=== PATIENT | female | born 1955 | race Caucasian/White ===

== ENCOUNTER 2016-12-24 14:54 | Inpatient (IN) ==
[2016-12-24] MEDS ORDERED: ALBUTEROL/IPRATROPIUM 3 ML NEB RESP TX PRN (18:21)
[2016-12-24] MEDS ORDERED: MORPHINE 2 MG/1 ML SYRINGE IV PRN (18:33)
[2016-12-24] MEDS ORDERED: CITALOPRAM 40 MG TABLET PO SCH (21:00)
--- NOTE | 2016-12-24 21:13 | Internal Med History&Physical ---
Assessment and Plan (1) Comminuted left humeral fracture Status: Acute Current Visit: Yes (2) Hypertension Status: Chronic Current Visit: Yes Qualifiers: Hypertension type: essential hypertension Qualified Code(s): I10 - Essential (primary) hypertension (3) Diabetes Status: Chronic Current Visit: Yes Qualifiers: Diabetes mellitus type: type 2 Diabetes mellitus complication status: with hyperglycemia Diabetes mellitus nursing home insulin use: without nursing home use Qualified Code(s): E11.65 - Type 2 diabetes mellitus with hyperglycemia (4) JESSICA (obstructive sleep apnea) Status: Chronic Current Visit: Yes (5) Anemia Status: Chronic Current Visit: Yes Qualifiers: Other causes of anemia: chronic disease, other History of Present Illness Chief complaint: arm pain from acute fracture History of present illness: Ms. 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 She is scheduled for a surgical repair in the morning per Dr. Chavez. She is uncertain how she fell and denies loss of consciousness. Allergies Allergy/AdvReac Type Severity Reaction Status Date / Time Hydralazine Allergy Verified 12/24/16 16:44 lisinopril Allergy Verified 12/24/16 16:44 metformin Allergy Verified 12/24/16 16:44 Medical,Surgical,& Family Hx - Medical History Cardio: History of: Hypertension Endocrine: History of: Diabetes Mellitus (IDDM) Respiratory: History of: COPD, Obstructive Sleep Apnea (CPAP) Gastrointestinal: History of: Gastrointestinal Cancer (colon) Musculoskeletal: History of: Musculoskeletal Problems (osteoarthritis) Hematology: History of: Anemia - Surgical History Cardiac Surgeries: Sugical HX of: Vascular Access Devices (mediport placement) HEENT Surgeries: Surgical HX of: Tonsilectomy & Adenoidectomy Abdominal Surgeries: Surgical HX of: Abdominal Surgery, Colonoscopy Reproductive Surgeries: Surgical HX of;: Section, Gynecologic Surgery ( atopic ) - Family History Family History: Reports;: Family Cancer, Family Heart Disease, Family Hypertension, Family Stroke - Social History Smoking Status: Former smoker (quit smoking over 15 years ago) Frequency of Alcohol Use: None Type of Drug Use: None Functional capacity: wheelchair bound - Constitutional Constitutional: Present: fatigue - Musculoskeletal Musculoskeletal: Present: arthralgias, limited range of motion, muscle weakness (left arm), myalgias Exam - Constitutional Vitals: Period Temp Pulse Resp BP Sys/East Pulse Ox Last 24 Hr 97.4 F 83 22-22 168/96 General appearance: no acute distress - Head Head exam: Present: normocephalic - Eye Eye exam: Present: EOMI - Respiratory Respiratory exam: Present: clear to auscultation bilaterally. Absent: rales, rhonchi, wheezes - Cardiovascular Cardiovascular exam: Present: regular rate and rhythm - GI/Abdominal GI/Abdominal exam: Present: soft. Absent: tenderness - Extremities Exam Extremities exam: Absent: edema - Neurological Exam Neurological exam: Present: alert, oriented X3, CN II-XII intact - Psychiatric Psychiatric exam: Present: normal mood - Skin Skin exam: Present: warm, diaphoretic (severe arm pain) Results - EKG EKG shows: sinus rhythm - Diagnostic Findings Procedure: X-ray: report reviewed by me (left humeral comminuted fracture)
--- NOTE | 2016-12-24 21:36 | XRay Report ---
Exam: XR chest 1V portable Date: 12/24/2016 9:13 PM Indication: Respiratory preop evaluation of the chest Comparison: CT 06/14/2015, history of prior colorectal carcinoma Technical:AP portable Findings: A left-sided subclavian port catheter is present distance. Vena cava. Cardiomegaly is present. Mild interstitial thickening present and shunt vascularity. Tiny low-volume left effusion present. Left humeral head neck fracture is suspected with butterfly fragment Impression: 1. Cardiomegaly with mild interstitial edema questioned. 2. Left-sided port 3. Left humeral head neck fracture PROCEDURE INTERPRETED AT [facility] DEPARTMENT OF RADIOLOGY Final Report Signed by: Dr. Kristopher Webster
[2016-12-24] MEDS: CARBIDOPA/LEVODOPA 25-100 MG TABLET PO SCH (22:03)
[2016-12-24] MEDS: CITALOPRAM 40 MG TABLET PO SCH (22:03)
[2016-12-24] MEDS: traZODone 50 MG TABLET PO SCH (22:04)
[2016-12-24] MEDS: cloNIDine 0.1 MG TABLET PO SCH (22:04)
[2016-12-24] MEDS: CETIRIZINE 10 MG TABLET PO SCH (22:04)
[2016-12-24] MEDS: sitaGLIPtin 25 MG TABLET PO SCH (22:04)
[2016-12-24] MEDS: INSULIN REGULAR 100 UNIT/ML SUBCUT SCH (22:05)
[2016-12-24] MEDS: KETOROLAC 15 MG/1 ML VIAL IV SCH (22:21)
[2016-12-25] MEDS ORDERED: FUROSEMIDE 20 MG/2 ML VIAL IV ONE (00:50)
[2016-12-25] MEDS ORDERED: POTASSIUM CHLORIDE 20 MEQ TABLET PO ONE (00:51)
[2016-12-25] MEDS: KETOROLAC 15 MG/1 ML VIAL IV SCH ×4 (05:32→23:20)
[2016-12-25 06:10] LABS: Basophils % 0.4 % (0.0-0.8); Eosinophils # 0.1 10*3/uL (0.0-0.87); Eosinophils % 1.7 % (0.00-10.9); Hematocrit 40.1 VOL% (35.7-47.0); Hemoglobin 13.3 GM/DL (12.0-16.0); Immature Granulocytes % 0.6 %; Immature Granulocytes Absolute 0.03 #; Lymphocytes # 1.4 10*3/uL (1.4-4.0); Lymphocytes % 27.2 % (21.3-54.2); Mean Corpuscular HGB Conc 33.2 GM/DL (32-36); Mean Corpuscular Hemoglobin 29 PG (27-34); Mean Corpuscular Volume 88.1 FL (87-102); Mean Platelet Volume 11.8 FL (9.6-12.0); Monocytes # 0.4 10*3/uL (0.11-0.8); Monocytes % 7.7 % (1.7-12.7); Neutrophils # 3.2 10*3/uL (1.4-7.4); Neutrophils % 62.4 % (38.7-73.9); Platelet Count 105 10*3/uL (130-400); Red Blood Count 4.55 10*6/uL (3.8-5.5); Red Cell Distribution Width 13.2 % (9.3-17.3); White Blood Count 5.2 10*3/uL (4.5-13.71)
[2016-12-25 07:01] LABS: Albumin 3.3 G/DL (3.4-5.0); Calcium 8.7 MG/DL (8.5-10.1); Osmolality,Calculated 295.3 MOS/KG (273-304); Potassium 4.5 MMOL/L (3.5-5.1); Total Protein 6.2 G/DL (6.4-8.3)
[2016-12-25] MEDS ORDERED: FAMOTIDINE 20 MG TABLET PO ONE (07:33)
--- NOTE | 2016-12-25 08:01 | Orthopedic Consult Note ---
History of Present Illness History of present illness: Ms. Chery is a 61 year old female See attached reports H&P Home Medications Medication Instructions Recorded Confirmed Type Aspirin [Ecotrin] 81 mg PO DAILY 12/25/16 12/25/16 History Carbidopa/Levodopa 25-100 [Sinemet 1 tablet PO TID 12/25/16 12/25/16 History 25-100] Cetirizine Tab [ZyrTEC Tab] 10 mg PO DAILY 12/25/16 12/25/16 History Citalopram [CeleXA] 40 mg PO DAILY 12/25/16 12/25/16 History Ergocalciferol (Vitamin D2) 2,000 unit PO DAILY 12/25/16 12/25/16 History [Vitamin D2] Famotidine Tab [Pepcid Tab] 20 mg PO BID 12/25/16 12/25/16 History Glimepiride [Amaryl] 2 mg PO DAILY W/BREAKFAST 12/25/16 12/25/16 History Levothyroxine Tab [Synthroid Tab] 50 mcg PO DAILY@0700 12/25/16 12/25/16 History Oxybutynin [Ditropan] 5 mg PO BID 12/25/16 12/25/16 History Sitagliptin Phosphate [Januvia] 50 mg PO BID 12/25/16 12/25/16 History Valsartan [Diovan] 80 mg PO DAILY 12/25/16 12/25/16 History traZODone [Desyrel] 200 mg PO DAILY 12/25/16 12/25/16 History Allergies Allergy/AdvReac Type Severity Reaction Status Date / Time Hydralazine Allergy Verified 12/24/16 16:44 lisinopril Allergy Verified 12/24/16 16:44 metformin Allergy Verified 12/24/16 16:44 Medical,Surgical,& Family Hx - Medical History Cardio: History of: Hypertension Endocrine: History of: Diabetes Mellitus (IDDM) Respiratory: History of: COPD, Obstructive Sleep Apnea (CPAP) Gastrointestinal: History of: Gastrointestinal Cancer (colon) Musculoskeletal: History of: Musculoskeletal Problems (osteoarthritis) Hematology: History of: Anemia - Surgical History Cardiac Surgeries: Sugical HX of: Vascular Access Devices (mediport placement) HEENT Surgeries: Surgical HX of: Tonsilectomy & Adenoidectomy Abdominal Surgeries: Surgical HX of: Abdominal Surgery, Colonoscopy Reproductive Surgeries: Surgical HX of;: Section, Gynecologic Surgery ( atopic ) - Family History Family History: Reports;: Family Cancer, Family Heart Disease, Family Hypertension, Family Stroke - Social History Smoking Status: Former smoker (quit smoking over 15 years ago) Frequency of Alcohol Use: None Type of Drug Use: None Exam - Constitutional Vitals: Period Temp Pulse Resp BP Sys/East Pulse Ox Last 24 Hr 97.3 F-98.2 F 69-83 20-22 141-183/62-104 95-97 Results - Labs CBC & BMP: 12/25/16 05:39 12/25/16 05:39
[2016-12-25] MEDS: CARBIDOPA/LEVODOPA 25-100 MG TABLET PO SCH ×3 (08:40→21:05)
[2016-12-25] MEDS: cloNIDine 0.1 MG TABLET PO SCH ×3 (08:40→21:05)
[2016-12-25] MEDS: VALSARTAN 80 MG TABLET PO SCH (08:40)
[2016-12-25] MEDS: LEVOTHYROXINE 50 MCG TABLET PO SCH (08:41)
[2016-12-25] MEDS: INSULIN REGULAR 100 UNIT/ML SUBCUT SCH ×4 (08:49→21:05)
[2016-12-25] MEDS: GLIMEPIRIDE 2 MG TABLET PO SCH (08:50)
[2016-12-25] MEDS: sitaGLIPtin 25 MG TABLET PO SCH ×2 (08:50→21:05)
[2016-12-25] MEDS ORDERED: VALSARTAN 80 MG TABLET PO SCH ×2 (09:00)
[2016-12-25] MEDS ORDERED: INSULIN GLARGINE 100 UNIT/ML SUBCUT SCH (09:00)
[2016-12-25] MEDS ORDERED: GLIMEPIRIDE 2 MG TABLET PO SCH (09:00)
[2016-12-25] MEDS ORDERED: ceFAZolin 2,000 MG in SODIUM CHLORIDE 0.9% 100 ML IV ONE (10:00)
[2016-12-25] MEDS: LACTATED RINGERS 1,000 ML IV SCH (10:04)
[2016-12-25] MEDS: ASPIRIN CHEW 81 MG TABLET PO SCH (10:09)
[2016-12-25] MEDS ORDERED: ROPIVACAINE 0.5% 30 ML VIAL ONE (10:53)
[2016-12-25] MEDS ORDERED: ROCURONIUM 100 MG/10 ML VIAL IV ONE (12:05)
[2016-12-25] MEDS ORDERED: PROPOFOL 200 MG/20 ML VIAL IV ONE (12:05)
[2016-12-25] MEDS ORDERED: SUCCINYLCHOLINE 200 MG/10 ML VIAL ONE (12:05)
[2016-12-25] MEDS ORDERED: LIDOCAINE 2% 5 ML VIAL ONE (12:05)
[2016-12-25] MEDS ORDERED: PHENYLEPHRINE 1 MG/10 ML SYRINGE IV ONE (12:05)
[2016-12-25] MEDS ORDERED: ONDANSETRON 4 MG/2 ML VIAL ONE (12:05)
--- NOTE | 2016-12-25 13:20 | Anesthesia ---
Anesthesia Procedures - Nerve Blocks Main Anesthetic: general anesthesia Location: Pre-op area Position: semi sitting Type of Block: Left: Intescalene Patinet Consent: Patinet consented for above nerve block., Risks and benefits were discussed with patient,including infection,, bleeding,injury to surrounding structures, seizure, temporary nerve, Patient understands and accepts potential risks/benefits and agrees to, proceed. ASA Monitors on: pulse oximetry, EKG, BP cuff, oxygen via Local Anesthetic: 0.5% Ropivicaine Ultrasound Used to: Recognize Landmarks, Visualize and ID Brachial Plexus in supraclavicular region, Visualize and ID interscalene groove Nerve Stimulator used: Yes Inject slowly in 5cc increments with:: Negative aspitation of heme
[2016-12-25] MEDS ORDERED: MORPHINE 2 MG/1 ML SYRINGE IV PRN (13:41)
[2016-12-25] MEDS ORDERED: fentaNYL 100 MCG/2 ML VIAL ONE (14:00)
[2016-12-25] MEDS ORDERED: SEVOFLURANE 1 UNIT/15 MINUTE INH ONE (14:00)
[2016-12-25] MEDS ORDERED: MIDAZOLAM 2 MG/2 ML VIAL ONE (14:00)
[2016-12-25] MEDS ORDERED: SODIUM CHLORIDE 0.9% 250 ML IV ONE (14:00)
[2016-12-25] MEDS ORDERED: LACTATED RINGERS 1,000 ML IV ONE (14:00)
--- NOTE | 2016-12-25 14:08 | Anesthesia ---
Anesthesia Post OP - Post Ansesthetic Evaluation Patient seen in post op: Yes Resp: within normal limits CV: within normal limits Mental: within normal limits Temp: within normal limits [id number]: within normal limits Nausea and Vomiting: within normal limits Pain: within normal limits
--- NOTE | 2016-12-25 18:38 | Operative Note ---
DATE: 12/25/2016 PREOPERATIVE DIAGNOSIS: COMMINUTED PROXIMAL HUMERUS FRACTURE, LEFT. POSTOPERATIVE DIAGNOSIS: COMMINUTED PROXIMAL HUMERUS FRACTURE, LEFT. OPERATIVE PROCEDURE: OPEN REDUCTION INTERNAL FIXATION LEFT PROXIMAL HUMERUS FRACTURE. SURGEON: Bryce Jenkins Jr., MD ANESTHESIA: General INDICATIONS: A 61-year-old white female sustaining a severely comminuted and displaced fracture to her left shoulder last weekend. I discussed with her earlier this week the need for ORIF, and also the possibility of osteonecrosis. It was recommended that we proceed with ORIF. She presents for procedure and being cleared by Dr. Conklin. PROCEDURE: The patient taken to the operating room and under general anesthetic she was positioned in a beach chair-type position and the left upper extremity and shoulder prepped and draped in the usual sterile manner. She received Ancef preoperatively. A deltoid splitting approach was performe d. An incision was made from the anterolateral acromion down the arm in a vertical fashion. This a llowed blunt dissection through the deltoid itself and evacuation of the hematoma. There was signif icant impaction of the articular head fragment which was elevated back into an anatomic position. O rthocovera was used to put 2 retention sutures in the cuff that controlled the large tuberosity fragme nt. This was then pulled down over the top and a Synthes proximal humerus plate was then seated on the lateral aspect of the humerus. This resulted in satisfactory alignment reduction. It was secur ed with multiple screws in the head, all locking. Three screws in a bicortical fashion were placed in the shaft. Reduction and internal fixation was felt to be satisfactory. The retention sutures w ere then sewn through the plate to add further stability to the construct. The wound was then irrigated and closed with #0 Vicryl for the deltoid splitting incision, 2-0 Vicry l for the subcutaneous layer, and rickie for skin. Sterile dressings applied. She was placed in a n arm sling and taken to the recovery room in stable condition.
--- NOTE | 2016-12-25 19:52 | Internal Med Progress Note ---
Assessment and Plan (1) Comminuted left humeral fracture Status: Acute Current Visit: Yes (2) Hypertension Status: Chronic Current Visit: Yes Qualifiers: Hypertension type: essential hypertension Qualified Code(s): I10 - Essential (primary) hypertension (3) Diabetes Status: Chronic Current Visit: Yes Qualifiers: Diabetes mellitus type: type 2 Diabetes mellitus complication status: with hyperglycemia Diabetes mellitus residential insulin use: without residential use Qualified Code(s): E11.65 - Type 2 diabetes mellitus with hyperglycemia (4) JESSICA (obstructive sleep apnea) Status: Chronic Current Visit: Yes (5) Anemia Status: Chronic Current Visit: Yes Qualifiers: Other causes of anemia: chronic disease, other Internal Medicine - PN: Subj Interval history: Ms. 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 She is scheduled for a surgical repair in the morning per Dr. Chavez. She is uncertain how she fell and denies loss of consciousness. Today, , she is feeling better post surgical repair. Exam (Progress Note) - Constitutional Vitals: Period Temp Pulse Resp BP Sys/East Pulse Ox Last 24 Hr 97.0 F-98.8 F 63-112 16-20 107-183/58-104 94-98 Exam: General appearance: no acute distress - Respiratory Respiratory exam: Present: clear to auscultation bilaterally - Cardiovascular Cardiovascular exam: Present: regular rate and rhythm - GI/Abdominal GI/Abdominal exam: Present: soft. Absent: tenderness - Extremities Exam Extremities exam: Absent: edema Vitals reviewed Results - Labs CBC & BMP: 12/25/16 05:39 12/25/16 05:39
[2016-12-25] MEDS: ceFAZolin 2,000 MG in PREMIX 1 EACH IV SCH (21:03)
[2016-12-25] MEDS: traZODone 50 MG TABLET PO SCH (21:04)
[2016-12-25] MEDS: CETIRIZINE 10 MG TABLET PO SCH (21:05)
[2016-12-25] MEDS: CITALOPRAM 40 MG TABLET PO SCH (21:05)
[2016-12-26] MEDS: KETOROLAC 15 MG/1 ML VIAL IV SCH ×4 (04:53→23:47)
[2016-12-26] MEDS: ceFAZolin 2,000 MG in PREMIX 1 EACH IV SCH (04:53)
[2016-12-26] MEDS: LEVOTHYROXINE 50 MCG TABLET PO SCH (06:03)
[2016-12-26 06:35] LABS: Basophils % 0.2 % (0.0-0.8); Eosinophils # 0.1 10*3/uL (0.0-0.87); Eosinophils % 0.9 % (0.00-10.9); Hematocrit 36.4 VOL% (35.7-47.0); Hemoglobin 11.5 GM/DL (12.0-16.0); Immature Granulocytes % 0.4 %; Immature Granulocytes Absolute 0.02 #; Lymphocytes # 1.2 10*3/uL (1.4-4.0); Lymphocytes % 22.4 % (21.3-54.2); Mean Corpuscular HGB Conc 31.6 GM/DL (32-36); Mean Corpuscular Hemoglobin 29 PG (27-34); Mean Corpuscular Volume 91.9 FL (87-102); Mean Platelet Volume 11.9 FL (9.6-12.0); Monocytes # 0.4 10*3/uL (0.11-0.8); Monocytes % 7.6 % (1.7-12.7); Neutrophils # 3.8 10*3/uL (1.4-7.4); Neutrophils % 68.5 % (38.7-73.9); Platelet Count 104 10*3/uL (130-400); Red Blood Count 3.96 10*6/uL (3.8-5.5); Red Cell Distribution Width 13.4 % (9.3-17.3); White Blood Count 5.5 10*3/uL (4.5-13.71)
[2016-12-26 07:09] LABS: Calcium 7.8 MG/DL (8.5-10.1); Potassium 4.6 MMOL/L (3.5-5.1)
[2016-12-26] MEDS: LACTATED RINGERS 1,000 ML IV SCH (08:31)
--- NOTE | 2016-12-26 08:45 | Orthopedic Progress Note ---
Orthopedics - Subjective Interval history: Neurovascularly intact no complaints discussed home when ready medically Exam - Constitutional Vitals: Period Temp Pulse Resp BP Sys/East Pulse Ox Last 24 Hr 97.0 F-98.8 F 66-112 16-20 107-152/53-84 94-98 Results - Labs CBC & BMP: 12/26/16 05:08 12/26/16 05:08 Specialty Discharge - Follow Up or Referrals
[2016-12-26] MEDS: INSULIN GLARGINE 100 UNIT/ML SUBCUT SCH (09:30)
[2016-12-26] MEDS: CARBIDOPA/LEVODOPA 25-100 MG TABLET PO SCH ×3 (09:30→21:25)
[2016-12-26] MEDS: INSULIN REGULAR 100 UNIT/ML SUBCUT SCH ×4 (09:30→21:25)
[2016-12-26] MEDS: VALSARTAN 80 MG TABLET PO SCH (09:30)
[2016-12-26] MEDS: cloNIDine 0.1 MG TABLET PO SCH ×3 (09:31→21:25)
[2016-12-26] MEDS: ASPIRIN CHEW 81 MG TABLET PO SCH (09:31)
[2016-12-26] MEDS: GLIMEPIRIDE 2 MG TABLET PO SCH (09:31)
[2016-12-26] MEDS: sitaGLIPtin 25 MG TABLET PO SCH ×2 (09:36→21:25)
--- NOTE | 2016-12-26 14:16 | Internal Med Progress Note ---
Assessment and Plan (1) Comminuted left humeral fracture Status: Acute Current Visit: Yes (2) Hypertension Status: Chronic Current Visit: Yes Qualifiers: Hypertension type: essential hypertension Qualified Code(s): I10 - Essential (primary) hypertension (3) Diabetes Status: Chronic Current Visit: Yes Qualifiers: Diabetes mellitus type: type 2 Diabetes mellitus complication status: with hyperglycemia Diabetes mellitus usp insulin use: without usp use Qualified Code(s): E11.65 - Type 2 diabetes mellitus with hyperglycemia (4) JESSICA (obstructive sleep apnea) Status: Chronic Current Visit: Yes (5) Anemia Status: Chronic Current Visit: Yes Qualifiers: Other causes of anemia: chronic disease, other (6) Noncompliance Status: Chronic Current Visit: Yes (7) Psychiatric disorder Status: Chronic Current Visit: Yes Internal Medicine - PN: Subj Interval history: Ms. 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 She is scheduled for a surgical repair in the morning per Dr. Chavez. She is uncertain how she fell and denies loss of consciousness. Today, , she is feeling better post surgical repair. Thursday, she reports left arm post surgical pain. Also, discussed case with daughter who is here from [place]. As it turns out, this patient is a hoarder at home to the point of personal safety issue and health hazard (fell and fractured left humerus). Daughter is requesting psychiatric care. Patient has long standing issue of medical noncompliance. Consulting social worker delinquency prevention to help daughter formulate a plan. Exam (Progress Note) - Constitutional Vitals: Period Temp Pulse Resp BP Sys/East Pulse Ox Last 24 Hr 97.0 F-98.5 F 66-103 16-20 107-147/53-74 94-97 Exam: General appearance: no acute distress - Respiratory Respiratory exam: Present: clear to auscultation bilaterally - Cardiovascular Cardiovascular exam: Present: regular rate and rhythm - GI/Abdominal GI/Abdominal exam: Present: soft. Absent: tenderness - Extremities Exam Extremities exam: Absent: edema; left upper extremity with surgical bandages in place Vitals reviewed Results - Labs CBC & BMP: 12/26/16 05:08 12/26/16 05:08 Specialty Discharge - Follow Up or Referrals Follow up with: Bryce Jenkins Jr., MD [Physician] - 01/05/17 8:15 am
[2016-12-26] MEDS: traZODone 50 MG TABLET PO SCH (21:24)
[2016-12-26] MEDS: CITALOPRAM 40 MG TABLET PO SCH (21:24)
[2016-12-26] MEDS: CETIRIZINE 10 MG TABLET PO SCH (21:25)
[2016-12-27 03:39] LABS: Basophils % 0.3 % (0.0-0.8); Eosinophils # 0.1 10*3/uL (0.0-0.87); Eosinophils % 1.8 % (0.00-10.9); Hematocrit 37.8 VOL% (35.7-47.0); Hemoglobin 11.9 GM/DL (12.0-16.0); Immature Granulocytes % 0.3 %; Immature Granulocytes Absolute 0.02 #; Lymphocytes # 1.6 10*3/uL (1.4-4.0); Lymphocytes % 20.2 % (21.3-54.2); Mean Corpuscular HGB Conc 31.5 GM/DL (32-36); Mean Corpuscular Hemoglobin 30 PG (27-34); Mean Platelet Volume 11.6 FL (9.6-12.0); Monocytes # 0.7 10*3/uL (0.11-0.8); Monocytes % 8.8 % (1.7-12.7); Neutrophils # 5.4 10*3/uL (1.4-7.4); Neutrophils % 68.6 % (38.7-73.9); Platelet Count 101 10*3/uL (130-400); Red Blood Count 4.02 10*6/uL (3.8-5.5); Red Cell Distribution Width 13.2 % (9.3-17.3); White Blood Count 7.8 10*3/uL (4.5-13.71)
[2016-12-27 04:12] LABS: Albumin 2.9 G/DL (3.4-5.0); Bilirubin,Total 2.8 MG/DL (0.2-1.0); Calcium 8.1 MG/DL (8.5-10.1); Osmolality,Calculated 290.8 MOS/KG (273-304); Potassium 4.9 MMOL/L (3.5-5.1); Total Protein 5.4 G/DL (6.4-8.3)
[2016-12-27 05:38] LABS: Platelet Estimate Normal
[2016-12-27] MEDS: KETOROLAC 15 MG/1 ML VIAL IV SCH ×4 (05:43→23:28)
[2016-12-27] MEDS: LEVOTHYROXINE 50 MCG TABLET PO SCH (06:45)
[2016-12-27] MEDS: GLIMEPIRIDE 2 MG TABLET PO SCH (09:01)
[2016-12-27] MEDS: INSULIN GLARGINE 100 UNIT/ML SUBCUT SCH (09:01)
[2016-12-27] MEDS: INSULIN REGULAR 100 UNIT/ML SUBCUT SCH ×4 (09:02→21:07)
[2016-12-27] MEDS: ASPIRIN CHEW 81 MG TABLET PO SCH (09:02)
[2016-12-27] MEDS: VALSARTAN 80 MG TABLET PO SCH (09:02)
[2016-12-27] MEDS: CARBIDOPA/LEVODOPA 25-100 MG TABLET PO SCH ×3 (09:02→21:07)
[2016-12-27] MEDS: cloNIDine 0.1 MG TABLET PO SCH ×3 (09:02→21:07)
[2016-12-27] MEDS: sitaGLIPtin 25 MG TABLET PO SCH ×2 (09:02→21:07)
--- NOTE | 2016-12-27 09:39 | Internal Med Progress Note ---
Assessment and Plan (1) Comminuted left humeral fracture Status: Acute Assessment and plan: 61-year-old female admitted to acute care * Status post fall and repair of left humerus fracture. Patient has been started on PT and OT. She lives alone at home. She has had falls. She may benefit from acute swing bed or rehab * Hypertension. Continue current treatment * Diabetes. She will be continued on her current medication * Obstructive sleep apnea. Continue CPAP * Discussed with patient. No family present Current Visit: Yes (2) Diabetes Status: Chronic Current Visit: Yes Qualifiers: Diabetes mellitus type: type 2 Diabetes mellitus complication status: with hyperglycemia Diabetes mellitus medical terminologist insulin use: without custodial use Qualified Code(s): E11.65 - Type 2 diabetes mellitus with hyperglycemia (3) Hypertension Status: Chronic Current Visit: Yes Qualifiers: Hypertension type: essential hypertension Qualified Code(s): I10 - Essential (primary) hypertension (4) Noncompliance Status: Chronic Current Visit: Yes (5) JESSICA (obstructive sleep apnea) Status: Chronic Current Visit: Yes Internal Medicine - PN: Subj Interval history: Patient is quite sleepy. Her pain is under good control. She denies any chest pain or shortness of breath Exam (Progress Note) - Constitutional Vitals: Period Temp Pulse Resp BP Sys/East Pulse Ox Last 24 Hr 96.3 F-98.6 F 60-69 16-19 112-155/63-80 94-99 Exam: Examination: GENERAL: Obese white HEENT: PERRLA. EOMI. NECK: Neck is supple. CVS: Regular rate and rhythm. S1 and S2 are normal. RESPIRATORY: Lungs are clear. ABDOMEN: Soft and nontender. EXT: No edema. Peripheral pulses are present. EQUIPMENT ANALYST: Nonfocal SKIN: Warm and dry. MSK: Left upper extremity in splint. [place] are present with bandage Results - Labs CBC & BMP: 12/27/16 03:19 12/27/16 03:19 Lab Results: I have reviewed the past 24 hour labs Specialty Discharge - Follow Up or Referrals Follow up with: Bryce Jenkins Jr., MD [Physician] - 01/05/17 8:15 am
[2016-12-27] MEDS: traZODone 50 MG TABLET PO SCH (21:07)
[2016-12-27] MEDS: CITALOPRAM 40 MG TABLET PO SCH (21:07)
[2016-12-27] MEDS: CETIRIZINE 10 MG TABLET PO SCH (21:07)
[2016-12-28] MEDS: KETOROLAC 15 MG/1 ML VIAL IV SCH ×4 (04:51→22:24)
[2016-12-28] MEDS: LEVOTHYROXINE 50 MCG TABLET PO SCH (06:13)
[2016-12-28] MEDS: INSULIN REGULAR 100 UNIT/ML SUBCUT SCH ×4 (07:37→22:23)
[2016-12-28] MEDS: INSULIN GLARGINE 100 UNIT/ML SUBCUT SCH (08:41)
[2016-12-28] MEDS: GLIMEPIRIDE 2 MG TABLET PO SCH (08:41)
[2016-12-28] MEDS: sitaGLIPtin 25 MG TABLET PO SCH ×2 (08:41→21:14)
--- NOTE | 2016-12-28 10:12 | Internal Med Progress Note ---
Assessment and Plan (1) Comminuted left humeral fracture Status: Acute Assessment and plan: 61-year-old female admitted to acute care * Status post fall and repair of left humerus fracture. Patient has been started on PT and OT. * Hypertension. Continue current treatment * Diabetes. She will be continued on her current medication * Obstructive sleep apnea. Continue CPAP * Will start her on Mucinex 600 twice daily * Discussed with patient. No family present Current Visit: Yes (2) Diabetes Status: Chronic Current Visit: Yes Qualifiers: Diabetes mellitus type: type 2 Diabetes mellitus complication status: with hyperglycemia Diabetes mellitus director long term care insulin use: without intermediate use Qualified Code(s): E11.65 - Type 2 diabetes mellitus with hyperglycemia (3) Hypertension Status: Chronic Current Visit: Yes Qualifiers: Hypertension type: essential hypertension Qualified Code(s): I10 - Essential (primary) hypertension (4) Noncompliance Status: Chronic Current Visit: Yes (5) JESSICA (obstructive sleep apnea) Status: Chronic Current Visit: Yes Internal Medicine - PN: Subj Interval history: Patient is sitting up in the chair. She is complaining of congestion. No chest pain or shortness of breath Exam (Progress Note) - Constitutional Vitals: Period Temp Pulse Resp BP Sys/East Pulse Ox Last 24 Hr 97.4 F-99.3 F 53-98 16-20 106-145/48-75 93-98 Exam: Examination: GENERAL: Obese white CVS: Regular rate and rhythm. S1 and S2 are normal. RESPIRATORY: Lungs are clear. ABDOMEN: Soft and nontender. EXT: No edema. Peripheral pulses are present. BATTERY CONTAINER TESTER ALUMINUM: Nonfocal SKIN: Warm and dry. MSK: Left upper extremity in splint. [place] are present with bandage Results - Labs CBC & BMP: 12/27/16 03:19 12/27/16 03:19 Specialty Discharge - Follow Up or Referrals Follow up with: Bryce Jenkins Jr., MD [Physician] - 01/05/17 8:15 am
[2016-12-28] MEDS: ASPIRIN CHEW 81 MG TABLET PO SCH (10:33)
[2016-12-28] MEDS: VALSARTAN 80 MG TABLET PO SCH (10:33)
[2016-12-28] MEDS: cloNIDine 0.1 MG TABLET PO SCH ×3 (10:34→21:15)
[2016-12-28] MEDS: CARBIDOPA/LEVODOPA 25-100 MG TABLET PO SCH ×3 (10:34→21:14)
[2016-12-28] MEDS: CITALOPRAM 40 MG TABLET PO SCH (21:14)
[2016-12-28] MEDS: traZODone 50 MG TABLET PO SCH (21:14)
[2016-12-28] MEDS: CETIRIZINE 10 MG TABLET PO SCH (21:14)
[2016-12-29] MEDS: KETOROLAC 15 MG/1 ML VIAL IV SCH ×3 (06:40→16:54)
[2016-12-29] MEDS: LEVOTHYROXINE 50 MCG TABLET PO SCH (06:40)
[2016-12-29] MEDS: GLIMEPIRIDE 2 MG TABLET PO SCH (08:05)
[2016-12-29] MEDS: INSULIN REGULAR 100 UNIT/ML SUBCUT SCH ×4 (08:05→21:05)
[2016-12-29] MEDS: sitaGLIPtin 25 MG TABLET PO SCH ×2 (08:06→21:05)
[2016-12-29] MEDS: INSULIN GLARGINE 100 UNIT/ML SUBCUT SCH (08:06)
--- NOTE | 2016-12-29 08:26 | Orthopedic Progress Note ---
Assessment and Plan (1) Comminuted left humeral fracture Status: Acute Assessment and plan: d/c today sling Ok to shower, no tub soaks Current Visit: Yes Orthopedics - Subjective Interval history: c/o shoulder pain c/d/i, NVI d/c today Exam - Constitutional Vitals: Period Temp Pulse Resp BP Sys/East Pulse Ox Last 24 Hr 97.3 F-98.6 F 49-59 16-18 127-151/62-72 95-97 Results - Labs CBC & BMP: 12/27/16 03:19 12/27/16 03:19 Specialty Discharge - Follow Up or Referrals Follow up with: Bryce Jenkins Jr., MD [Physician] - 01/05/17 8:15 am
[2016-12-29] MEDS: VALSARTAN 80 MG TABLET PO SCH (09:08)
[2016-12-29] MEDS: ASPIRIN CHEW 81 MG TABLET PO SCH (09:08)
[2016-12-29] MEDS: cloNIDine 0.1 MG TABLET PO SCH ×3 (09:08→21:06)
[2016-12-29] MEDS: CARBIDOPA/LEVODOPA 25-100 MG TABLET PO SCH ×3 (09:08→21:06)
[2016-12-29] MEDS: CITALOPRAM 40 MG TABLET PO SCH (21:05)
[2016-12-29] MEDS: CETIRIZINE 10 MG TABLET PO SCH (21:06)
[2016-12-29] MEDS: traZODone 50 MG TABLET PO SCH (21:06)
--- NOTE | 2016-12-29 22:04 | Internal Med Progress Note ---
Assessment and Plan (1) Comminuted left humeral fracture Status: Acute Current Visit: Yes (2) Hypertension Status: Chronic Current Visit: Yes Qualifiers: Hypertension type: essential hypertension Qualified Code(s): I10 - Essential (primary) hypertension (3) Diabetes Status: Chronic Current Visit: Yes Qualifiers: Diabetes mellitus type: type 2 Diabetes mellitus complication status: with hyperglycemia Diabetes mellitus nursing home insulin use: without nursing home use Qualified Code(s): E11.65 - Type 2 diabetes mellitus with hyperglycemia (4) JESSICA (obstructive sleep apnea) Status: Chronic Current Visit: Yes (5) Anemia Status: Chronic Current Visit: Yes Qualifiers: Other causes of anemia: chronic disease, other (6) Noncompliance Status: Chronic Current Visit: Yes (7) Psychiatric disorder Status: Chronic Current Visit: Yes Internal Medicine - PN: Subj Interval history: Ms. 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 She is scheduled for a surgical repair in the morning per Dr. Chavez. She is uncertain how she fell and denies loss of consciousness. Today, , she is feeling better post surgical repair. Thursday, she reports left arm post surgical pain. Also, discussed case with daughter who is here from [place]. As it turns out, this patient is a hoarder at home to the point of personal safety issue and health hazard (fell and fractured left humerus). Daughter is requesting psychiatric care. Patient has long standing issue of medical noncompliance. Consulting vp digital marketing social media and crm to help daughter formulate a plan. Thursday, she is much better. Consulting vp digital marketing social media and crm for swing bed placement. From there, she can obtain counselling. Exam (Progress Note) - Constitutional Vitals: Period Temp Pulse Resp BP Sys/East Pulse Ox Last 24 Hr 97.3 F-98.8 F 49-64 16-18 116-155/62-67 96-97 Exam: General appearance: no acute distress - Respiratory Respiratory exam: Present: clear to auscultation bilaterally - Cardiovascular Cardiovascular exam: Present: regular rate and rhythm - GI/Abdominal GI/Abdominal exam: Present: soft. Absent: tenderness - Extremities Exam Extremities exam: Absent: edema Vitals reviewed Results - Labs CBC & BMP: 12/27/16 03:19 12/27/16 03:19 Specialty Discharge - Follow Up or Referrals Follow up with: Bryce Jenkins Jr., MD [Physician] - 01/05/17 8:15 am
[2016-12-30 05:43] LABS: Basophils % 0.4 % (0.0-0.8); Eosinophils # 0.2 10*3/uL (0.0-0.87); Eosinophils % 2.8 % (0.00-10.9); Hematocrit 40.3 VOL% (35.7-47.0); Hemoglobin 12.8 GM/DL (12.0-16.0); Immature Granulocytes % 0.9 %; Immature Granulocytes Absolute 0.07 #; Lymphocytes % 24.6 % (21.3-54.2); Mean Corpuscular HGB Conc 31.8 GM/DL (32-36); Mean Corpuscular Hemoglobin 29 PG (27-34); Mean Platelet Volume 11.3 FL (9.6-12.0); Monocytes # 0.6 10*3/uL (0.11-0.8); Monocytes % 7.6 % (1.7-12.7); Neutrophils # 5.2 10*3/uL (1.4-7.4); Neutrophils % 63.7 % (38.7-73.9); Platelet Count 164 T/CUMM (130-400); Red Blood Count 4.43 MC/CUMM (3.8-5.5); Red Cell Distribution Width 13.1 % (9.3-17.3); White Blood Count 8.1 T/CUMM (4-12)
[2016-12-30 06:15] LABS: Albumin 2.9 G/DL (3.4-5.0); Bilirubin,Total 1.1 MG/DL (0.2-1.0); Calcium 8.4 MG/DL (8.5-10.1); Osmolality,Calculated 291.7 MOS/KG (273-304); Potassium 4.5 MMOL/L (3.5-5.1); Total Protein 5.9 G/DL (6.4-8.3)
[2016-12-30] MEDS: LEVOTHYROXINE 50 MCG TABLET PO SCH (06:56)
--- NOTE | 2016-12-30 08:06 | Orthopedic Progress Note ---
Orthopedics - Subjective Interval history: No new complaints dressing dry okay to swing bed once excepted we'll give new discharge orders Exam - Constitutional Vitals: Period Temp Pulse Resp BP Sys/East Pulse Ox Last 24 Hr 97.7 F-98.8 F 54-64 18-20 121-155/63-82 95-97 Results - Labs CBC & BMP: 12/30/16 05:24 12/30/16 05:24 Specialty Discharge - Follow Up or Referrals Follow up with: Bryce Jenkins Jr., MD [Physician] - 01/05/17 8:15 am
[2016-12-30] MEDS: INSULIN REGULAR 100 UNIT/ML SUBCUT SCH ×4 (08:36→20:47)
[2016-12-30] MEDS: GLIMEPIRIDE 2 MG TABLET PO SCH ×2 (08:36→09:24)
[2016-12-30] MEDS: INSULIN GLARGINE 100 UNIT/ML SUBCUT SCH ×2 (08:37→09:24)
[2016-12-30] MEDS: sitaGLIPtin 25 MG TABLET PO SCH ×3 (08:37→20:49)
[2016-12-30] MEDS: VALSARTAN 80 MG TABLET PO SCH (09:24)
[2016-12-30] MEDS: ASPIRIN CHEW 81 MG TABLET PO SCH (09:25)
[2016-12-30] MEDS: cloNIDine 0.1 MG TABLET PO SCH ×3 (09:25→20:50)
[2016-12-30] MEDS: CARBIDOPA/LEVODOPA 25-100 MG TABLET PO SCH ×3 (09:25→20:50)
[2016-12-30] MEDS: MAGNESIUM HYDROXIDE SUSP 30 ML UDCUP PO PRN (15:23)
[2016-12-30] MEDS: CITALOPRAM 40 MG TABLET PO SCH (20:49)
[2016-12-30] MEDS: traZODone 50 MG TABLET PO SCH (20:50)
[2016-12-30] MEDS: CETIRIZINE 10 MG TABLET PO SCH (20:50)
[2016-12-30] MEDS: OXYBUTYNIN 5 MG TABLET PO SCH (20:50)
--- NOTE | 2016-12-30 21:45 | Internal Med Progress Note ---
Assessment and Plan (1) Comminuted left humeral fracture Status: Acute Current Visit: Yes (2) Hypertension Status: Chronic Current Visit: Yes Qualifiers: Hypertension type: essential hypertension Qualified Code(s): I10 - Essential (primary) hypertension (3) Diabetes Status: Chronic Current Visit: Yes Qualifiers: Diabetes mellitus type: type 2 Diabetes mellitus complication status: with hyperglycemia Diabetes mellitus fci insulin use: without fci use Qualified Code(s): E11.65 - Type 2 diabetes mellitus with hyperglycemia (4) JESSICA (obstructive sleep apnea) Status: Chronic Current Visit: Yes (5) Anemia Status: Chronic Current Visit: Yes Qualifiers: Other causes of anemia: chronic disease, other (6) Noncompliance Status: Chronic Current Visit: Yes (7) Psychiatric disorder Status: Chronic Current Visit: Yes Internal Medicine - PN: Subj Interval history: Ms. 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 She is scheduled for a surgical repair in the morning per Dr. Chavez. She is uncertain how she fell and denies loss of consciousness. Today, , she is feeling better post surgical repair. Thursday, she reports left arm post surgical pain. Also, discussed case with daughter who is here from [place]. As it turns out, this patient is a hoarder at home to the point of personal safety issue and health hazard (fell and fractured left humerus). Daughter is requesting psychiatric care. Patient has long standing issue of medical noncompliance. Consulting transition social worker to help daughter formulate a plan. Thursday, she is much better. Consulting transition social worker for swing bed placement. From there, she can obtain counselling. Thursday, she continues to improve. Continuing PT/OT. Awaitng a bed in [facility]. Exam (Progress Note) - Constitutional Vitals: Period Temp Pulse Resp BP Sys/East Pulse Ox Last 24 Hr 97.7 F-99.2 F 55-65 17-20 136-162/75-83 95-97 Exam: General appearance: no acute distress - Respiratory Respiratory exam: Present: clear to auscultation bilaterally - Cardiovascular Cardiovascular exam: Present: regular rate and rhythm - GI/Abdominal GI/Abdominal exam: Present: soft. Absent: tenderness - Extremities Exam Extremities exam: Absent: edema Vitals reviewed Results - Labs CBC & BMP: 12/30/16 05:24 12/30/16 05:24 Specialty Discharge - Follow Up or Referrals Follow up with: Bryce Jenkins Jr., MD [Physician] - 01/05/17 8:15 am
[2016-12-31] MEDS: LEVOTHYROXINE 50 MCG TABLET PO SCH (07:57)
[2016-12-31] MEDS: INSULIN GLARGINE 100 UNIT/ML SUBCUT SCH (09:18)
[2016-12-31] MEDS: CARBIDOPA/LEVODOPA 25-100 MG TABLET PO SCH ×3 (09:20→22:54)
[2016-12-31] MEDS: cloNIDine 0.1 MG TABLET PO SCH ×3 (09:21→22:52)
[2016-12-31] MEDS: sitaGLIPtin 25 MG TABLET PO SCH ×2 (09:21→22:52)
[2016-12-31] MEDS: GLIMEPIRIDE 2 MG TABLET PO SCH (09:21)
[2016-12-31] MEDS: VALSARTAN 80 MG TABLET PO SCH (09:30)
[2016-12-31] MEDS: INSULIN REGULAR 100 UNIT/ML SUBCUT SCH ×4 (09:31→22:53)
[2016-12-31] MEDS: ASPIRIN CHEW 81 MG TABLET PO SCH (13:05)
[2016-12-31] MEDS: OXYBUTYNIN 5 MG TABLET PO SCH ×2 (13:05→22:52)
--- NOTE | 2016-12-31 20:18 | Internal Med Progress Note ---
Assessment and Plan (1) Comminuted left humeral fracture Status: Acute Current Visit: Yes (2) Hypertension Status: Chronic Current Visit: Yes Qualifiers: Hypertension type: essential hypertension Qualified Code(s): I10 - Essential (primary) hypertension (3) Diabetes Status: Chronic Current Visit: Yes Qualifiers: Diabetes mellitus type: type 2 Diabetes mellitus complication status: with hyperglycemia Diabetes mellitus fci insulin use: without fci use Qualified Code(s): E11.65 - Type 2 diabetes mellitus with hyperglycemia (4) Noncompliance Status: Chronic Current Visit: Yes Internal Medicine - PN: Subj Interval history: Ms. 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 She is scheduled for a surgical repair in the morning per Dr. Chavez. She is uncertain how she fell and denies loss of consciousness. Today, , she is feeling better post surgical repair. Thursday, she reports left arm post surgical pain. Also, discussed case with daughter who is here from [place]. As it turns out, this patient is a hoarder at home to the point of personal safety issue and health hazard (fell and fractured left humerus). Daughter is requesting psychiatric care. Patient has long standing issue of medical noncompliance. Consulting social research assistant to help daughter formulate a plan. Thursday, she is much better. Consulting social research assistant for swing bed placement. From there, she can obtain counselling. Thursday, she continues to improve. Continuing PT/OT. Awaitng a bed in [facility]. Thursday, no change other than left arm improvement. Still waiting for a bed. Exam (Progress Note) - Constitutional Vitals: Period Temp Pulse Resp BP Sys/Esat Pulse Ox Last 24 Hr 97.5 F-98.5 F 52-58 18-20 111-154/53-74 94-95 Exam: General appearance: no acute distress - Respiratory Respiratory exam: Present: clear to auscultation bilaterally - Cardiovascular Cardiovascular exam: Present: regular rate and rhythm - GI/Abdominal GI/Abdominal exam: Present: soft. Absent: tenderness - Extremities Exam Extremities exam: Absent: edema Vitals reviewed Results - Labs CBC & BMP: 12/30/16 05:24 12/30/16 05:24 Specialty Discharge - Follow Up or Referrals Follow up with: Bryce Jenkins Jr., MD [Physician] - 01/05/17 8:15 am
[2016-12-31] MEDS: traZODone 50 MG TABLET PO SCH (22:51)
[2016-12-31] MEDS: MAGNESIUM HYDROXIDE SUSP 30 ML UDCUP PO PRN (22:51)
[2016-12-31] MEDS: CETIRIZINE 10 MG TABLET PO SCH (22:53)
[2016-12-31] MEDS: CITALOPRAM 40 MG TABLET PO SCH (22:54)
[2017-01-01] MEDS: LEVOTHYROXINE 50 MCG TABLET PO SCH (07:16)
[2017-01-01] MEDS: OXYBUTYNIN 5 MG TABLET PO SCH ×2 (09:21→22:00)
[2017-01-01] MEDS: cloNIDine 0.1 MG TABLET PO SCH ×3 (09:21→22:00)
[2017-01-01] MEDS: VALSARTAN 80 MG TABLET PO SCH (09:21)
[2017-01-01] MEDS: ASPIRIN CHEW 81 MG TABLET PO SCH (09:21)
[2017-01-01] MEDS: GLIMEPIRIDE 2 MG TABLET PO SCH (09:21)
[2017-01-01] MEDS: sitaGLIPtin 25 MG TABLET PO SCH ×2 (09:22→22:00)
[2017-01-01] MEDS: INSULIN GLARGINE 100 UNIT/ML SUBCUT SCH (09:22)
[2017-01-01] MEDS: CARBIDOPA/LEVODOPA 25-100 MG TABLET PO SCH ×3 (09:22→22:00)
[2017-01-01] MEDS: INSULIN REGULAR 100 UNIT/ML SUBCUT SCH ×4 (09:23→23:23)
--- NOTE | 2017-01-01 20:53 | Internal Med Progress Note ---
Assessment and Plan (1) Comminuted left humeral fracture Status: Acute Current Visit: Yes (2) Hypertension Status: Chronic Current Visit: Yes Qualifiers: Hypertension type: essential hypertension Qualified Code(s): I10 - Essential (primary) hypertension (3) Diabetes Status: Chronic Current Visit: Yes Qualifiers: Diabetes mellitus type: type 2 Diabetes mellitus complication status: with hyperglycemia Diabetes mellitus [facility] insulin use: without [facility] use Qualified Code(s): E11.65 - Type 2 diabetes mellitus with hyperglycemia Internal Medicine - PN: Subj Interval history: Ms. 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 She is scheduled for a surgical repair in the morning per Dr. Chavez. She is uncertain how she fell and denies loss of consciousness. Today, , she is feeling better post surgical repair. Thursday, she reports left arm post surgical pain. Also, discussed case with daughter who is here from [place]. As it turns out, this patient is a hoarder at home to the point of personal safety issue and health hazard (fell and fractured left humerus). Daughter is requesting psychiatric care. Patient has long standing issue of medical noncompliance. Consulting social services director to help daughter formulate a plan. Thursday, she is much better. Consulting social services director for swing bed placement. From there, she can obtain counselling. Thursday, she continues to improve. Continuing PT/OT. Awaitng a bed in [facility]. Thursday, no change other than left arm improvement. Still waiting for a bed. , still waiting for a bed; she is doing better with improved glucose levels and blood pressure Exam (Progress Note) - Constitutional Vitals: Period Temp Pulse Resp BP Sys/East Pulse Ox Last 24 Hr 97.6 F-98.7 F 52-58 18-18 119-154/65-78 94-95 Exam: General appearance: no acute distress - Respiratory Respiratory exam: Present: clear to auscultation bilaterally - Cardiovascular Cardiovascular exam: Present: regular rate and rhythm - GI/Abdominal GI/Abdominal exam: Present: soft. Absent: tenderness - Extremities Exam Extremities exam: Absent: edema Vitals reviewed Results - Labs CBC & BMP: 12/30/16 05:24 12/30/16 05:24 Specialty Discharge - Follow Up or Referrals Follow up with: Bryce Jenkins Jr., MD [Physician] - 01/05/17 8:15 am
[2017-01-01] MEDS: traZODone 50 MG TABLET PO SCH (22:00)
[2017-01-01] MEDS: CITALOPRAM 40 MG TABLET PO SCH (22:00)
[2017-01-01] MEDS: CETIRIZINE 10 MG TABLET PO SCH (22:00)
[2017-01-02] MEDS: ALBUTEROL/IPRATROPIUM 3 ML NEB RESP TX SCH ×4 (00:02→18:04)
[2017-01-02 05:55] LABS: Calcium 8.4 MG/DL (8.5-10.1); Osmolality,Calculated 295.3 MOS/KG (273-304); Potassium 4.2 MMOL/L (3.5-5.1)
[2017-01-02] MEDS: LEVOTHYROXINE 50 MCG TABLET PO SCH (06:32)
[2017-01-02] MEDS: INSULIN REGULAR 100 UNIT/ML SUBCUT SCH ×4 (08:06→20:53)
[2017-01-02] MEDS: INSULIN GLARGINE 100 UNIT/ML SUBCUT SCH (08:23)
[2017-01-02] MEDS: GLIMEPIRIDE 2 MG TABLET PO SCH (08:23)
[2017-01-02] MEDS: sitaGLIPtin 25 MG TABLET PO SCH ×2 (08:28→20:55)
[2017-01-02] MEDS: CARBIDOPA/LEVODOPA 25-100 MG TABLET PO SCH ×3 (10:21→20:55)
[2017-01-02] MEDS: cloNIDine 0.1 MG TABLET PO SCH ×3 (10:21→20:55)
[2017-01-02] MEDS: ASPIRIN CHEW 81 MG TABLET PO SCH (10:22)
[2017-01-02] MEDS: OXYBUTYNIN 5 MG TABLET PO SCH ×2 (10:22→20:55)
[2017-01-02] MEDS: VALSARTAN 80 MG TABLET PO SCH (10:22)
--- NOTE | 2017-01-02 14:50 | Internal Med Progress Note ---
Assessment and Plan (1) Comminuted left humeral fracture Status: Acute Current Visit: Yes (2) Hypertension Status: Chronic Current Visit: Yes Qualifiers: Hypertension type: essential hypertension Qualified Code(s): I10 - Essential (primary) hypertension (3) Diabetes Status: Chronic Current Visit: Yes Qualifiers: Diabetes mellitus type: type 2 Diabetes mellitus complication status: with hyperglycemia Diabetes mellitus snf insulin use: without snf use Qualified Code(s): E11.65 - Type 2 diabetes mellitus with hyperglycemia Internal Medicine - PN: Subj Interval history: Ms. 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 She is scheduled for a surgical repair in the morning per Dr. Chavez. She is uncertain how she fell and denies loss of consciousness. Today, , she is feeling better post surgical repair. Thursday, she reports left arm post surgical pain. Also, discussed case with daughter who is here from [place]. As it turns out, this patient is a hoarder at home to the point of personal safety issue and health hazard (fell and fractured left humerus). Daughter is requesting psychiatric care. Patient has long standing issue of medical noncompliance. Consulting social security specialist to help daughter formulate a plan. Thursday, she is much better. Consulting social security specialist for swing bed placement. From there, she can obtain counselling. Thursday, she continues to improve. Continuing PT/OT. Awaitng a bed in [facility]. Thursday, no change other than left arm improvement. Still waiting for a bed. , still waiting for a bed; she is doing better with improved glucose levels and blood pressure Thursday, continues to improve healing arm fracture; hypoglycemic, and will adjust meds. She was symptomatic earlier. Exam (Progress Note) - Constitutional Vitals: Period Temp Pulse Resp BP Sys/East Pulse Ox Last 24 Hr 97.6 F-98.1 F 47-89 17-18 104-144/56-81 92-100 Exam: General appearance: no acute distress - Respiratory Respiratory exam: Present: clear to auscultation bilaterally - Cardiovascular Cardiovascular exam: Present: regular rate and rhythm - GI/Abdominal GI/Abdominal exam: Present: soft. Absent: tenderness - Extremities Exam Extremities exam: Absent: edema Vitals reviewed Results - Labs CBC & BMP: 12/30/16 05:24 01/02/17 04:31 Specialty Discharge - Follow Up or Referrals Follow up with: Bryce Jenkins Jr., MD [Physician] - 01/05/17 8:15 am
[2017-01-02] MEDS ORDERED: GLIMEPIRIDE 2 MG TABLET PO SCH (15:13)
[2017-01-02] MEDS: SODIUM CHLORIDE 0.45% 1,000 ML IV SCH (17:29)
[2017-01-02] MEDS ORDERED: POLYETHYLENE GLYCOL POWDER 17 GM PACK PO ONE (18:41)
[2017-01-02] MEDS: CETIRIZINE 10 MG TABLET PO SCH (20:54)
[2017-01-02] MEDS: traZODone 50 MG TABLET PO SCH (20:55)
[2017-01-02] MEDS: CITALOPRAM 40 MG TABLET PO SCH (20:55)
[2017-01-03] MEDS: ALBUTEROL/IPRATROPIUM 3 ML NEB RESP TX SCH ×4 (02:08→20:51)
[2017-01-03 03:51] LABS: Basophils % 0.5 % (0.0-0.8); Eosinophils # 0.2 10*3/uL (0.0-0.87); Eosinophils % 2.5 % (0.00-10.9); Hematocrit 35.9 VOL% (35.7-47.0); Hemoglobin 11.8 GM/DL (12.0-16.0); Immature Granulocytes % 1.5 %; Lymphocytes # 2.1 10*3/uL (1.4-4.0); Lymphocytes % 32.5 % (21.3-54.2); Mean Corpuscular HGB Conc 32.9 GM/DL (32-36); Mean Corpuscular Hemoglobin 30 PG (27-34); Mean Corpuscular Volume 90.2 FL (87-102); Mean Platelet Volume 11.5 FL (9.6-12.0); Monocytes # 0.5 10*3/uL (0.11-0.8); Monocytes % 6.9 % (1.7-12.7); Neutrophils # 3.7 10*3/uL (1.4-7.4); Neutrophils % 56.1 % (38.7-73.9); Platelet Count 156 T/CUMM (130-400); Red Blood Count 3.98 MC/CUMM (3.8-5.5); Red Cell Distribution Width 13.4 % (9.3-17.3); White Blood Count 6.5 T/CUMM (4-12)
[2017-01-03 04:08] LABS: Osmolality,Calculated 288.8 MOS/KG (273-304); Potassium 4.2 MMOL/L (3.5-5.1)
[2017-01-03] MEDS: LEVOTHYROXINE 50 MCG TABLET PO SCH (06:03)
[2017-01-03] MEDS: INSULIN REGULAR 100 UNIT/ML SUBCUT SCH ×4 (07:48→21:02)
[2017-01-03] MEDS: SODIUM CHLORIDE 0.45% 1,000 ML IV SCH ×2 (08:22→18:53)
[2017-01-03] MEDS: INSULIN GLARGINE 100 UNIT/ML SUBCUT SCH (09:09)
[2017-01-03] MEDS: CARBIDOPA/LEVODOPA 25-100 MG TABLET PO SCH ×3 (09:10→21:04)
[2017-01-03] MEDS: OXYBUTYNIN 5 MG TABLET PO SCH ×2 (09:10→21:04)
[2017-01-03] MEDS: VALSARTAN 80 MG TABLET PO SCH (09:10)
[2017-01-03] MEDS: cloNIDine 0.1 MG TABLET PO SCH ×3 (09:10→21:04)
[2017-01-03] MEDS: sitaGLIPtin 25 MG TABLET PO SCH ×2 (09:11→21:04)
[2017-01-03] MEDS: ASPIRIN CHEW 81 MG TABLET PO SCH (09:11)
--- NOTE | 2017-01-03 11:06 | Internal Med Progress Note ---
Assessment and Plan (1) Comminuted left humeral fracture Status: Acute Current Visit: Yes (2) Hypertension Status: Chronic Current Visit: Yes Qualifiers: Hypertension type: essential hypertension Qualified Code(s): I10 - Essential (primary) hypertension (3) Diabetes Status: Chronic Current Visit: Yes Qualifiers: Diabetes mellitus type: type 2 Diabetes mellitus complication status: with hyperglycemia Diabetes mellitus mcfp insulin use: without m[facility]p use Qualified Code(s): E11.65 - Type 2 diabetes mellitus with hyperglycemia Internal Medicine - PN: Subj Interval history: Ms. 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 She is scheduled for a surgical repair in the morning per Dr. Chavez. She is uncertain how she fell and denies loss of consciousness. Today, , she is feeling better post surgical repair. Thursday, she reports left arm post surgical pain. Also, discussed case with daughter who is here from [place]. As it turns out, this patient is a hoarder at home to the point of personal safety issue and health hazard (fell and fractured left humerus). Daughter is requesting psychiatric care. Patient has long standing issue of medical noncompliance. Consulting medical social consultant to help daughter formulate a plan. Thursday, she is much better. Consulting medical social consultant for swing bed placement. From there, she can obtain counselling. Thursday, she continues to improve. Continuing PT/OT. Awaitng a bed in [facility]. Thursday, no change other than left arm improvement. Still waiting for a bed. , still waiting for a bed; she is doing better with improved glucose levels and blood pressure Thursday, continues to improve healing arm fracture; hypoglycemic, and will adjust meds. She was symptomatic earlier. Thursday, feeling better with diabetic meds adjusted. Exam (Progress Note) - Constitutional Vitals: Period Temp Pulse Resp BP Sys/East Pulse Ox Last 24 Hr 97.6 F-98.1 F 49-89 17-20 115-151/48-79 93-100 Exam: General appearance: no acute distress - Respiratory Respiratory exam: Present: clear to auscultation bilaterally - Cardiovascular Cardiovascular exam: Present: regular rate and rhythm - GI/Abdominal GI/Abdominal exam: Present: soft. Absent: tenderness - Extremities Exam Extremities exam: Absent: edema Vitals reviewed Results - Labs CBC & BMP: 01/03/17 03:19 01/03/17 03:19 Specialty Discharge - Follow Up or Referrals Follow up with: Bryce Jenkins Jr., MD [Physician] - 01/05/17 8:15 am
[2017-01-03] MEDS: traZODone 50 MG TABLET PO SCH (21:04)
[2017-01-03] MEDS: CITALOPRAM 40 MG TABLET PO SCH (21:04)
[2017-01-03] MEDS: CETIRIZINE 10 MG TABLET PO SCH (21:05)
[2017-01-04] MEDS: ALBUTEROL/IPRATROPIUM 3 ML NEB RESP TX SCH ×4 (00:51→20:45)
[2017-01-04 06:48] LABS: Basophils % 0.4 % (0.0-0.8); Eosinophils # 0.2 10*3/uL (0.0-0.87); Eosinophils % 2.3 % (0.00-10.9); Hemoglobin 12.8 GM/DL (12.0-16.0); Immature Granulocytes % 1.3 %; Immature Granulocytes Absolute 0.09 #; Lymphocytes # 1.9 10*3/uL (1.4-4.0); Lymphocytes % 28.1 % (21.3-54.2); Mean Corpuscular Hemoglobin 29 PG (27-34); Mean Corpuscular Volume 91.7 FL (87-102); Mean Platelet Volume 11.6 FL (9.6-12.0); Monocytes # 0.5 10*3/uL (0.11-0.8); Monocytes % 7.7 % (1.7-12.7); Neutrophils # 4.1 10*3/uL (1.4-7.4); Neutrophils % 60.2 % (38.7-73.9); Platelet Count 179 T/CUMM (130-400); Red Blood Count 4.36 MC/CUMM (3.8-5.5); Red Cell Distribution Width 13.5 % (9.3-17.3); White Blood Count 6.9 T/CUMM (4-12)
[2017-01-04 07:11] LABS: Calcium 8.4 MG/DL (8.5-10.1); Osmolality,Calculated 290.6 MOS/KG (273-304); Potassium 4.4 MMOL/L (3.5-5.1)
[2017-01-04] MEDS: LEVOTHYROXINE 50 MCG TABLET PO SCH (07:22)
[2017-01-04] MEDS: GLIMEPIRIDE 2 MG TABLET PO SCH (09:25)
[2017-01-04] MEDS: INSULIN REGULAR 100 UNIT/ML SUBCUT SCH ×4 (09:25→22:23)
[2017-01-04] MEDS: sitaGLIPtin 25 MG TABLET PO SCH ×2 (09:25→21:47)
[2017-01-04] MEDS: CARBIDOPA/LEVODOPA 25-100 MG TABLET PO SCH ×3 (10:24→21:47)
[2017-01-04] MEDS: cloNIDine 0.1 MG TABLET PO SCH ×3 (10:24→21:47)
[2017-01-04] MEDS: ASPIRIN CHEW 81 MG TABLET PO SCH (10:24)
[2017-01-04] MEDS: OXYBUTYNIN 5 MG TABLET PO SCH ×2 (10:24→21:48)
[2017-01-04] MEDS: VALSARTAN 80 MG TABLET PO SCH (10:24)
[2017-01-04] MEDS: INSULIN GLARGINE 100 UNIT/ML SUBCUT SCH (10:25)
[2017-01-04] MEDS: SODIUM CHLORIDE 0.45% 1,000 ML IV SCH (12:10)
--- NOTE | 2017-01-04 14:54 | Internal Med Progress Note ---
Assessment and Plan (1) Comminuted left humeral fracture Status: Acute Current Visit: Yes (2) Hypertension Status: Chronic Current Visit: Yes Qualifiers: Hypertension type: essential hypertension Qualified Code(s): I10 - Essential (primary) hypertension (3) Diabetes Status: Chronic Current Visit: Yes Qualifiers: Diabetes mellitus type: type 2 Diabetes mellitus complication status: with hyperglycemia Diabetes mellitus intermediate insulin use: without intermediate use Qualified Code(s): E11.65 - Type 2 diabetes mellitus with hyperglycemia Internal Medicine - PN: Subj Interval history: Ms. 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 She is scheduled for a surgical repair in the morning per Dr. Chavez. She is uncertain how she fell and denies loss of consciousness. Today, , she is feeling better post surgical repair. Thursday, she reports left arm post surgical pain. Also, discussed case with daughter who is here from [place]. As it turns out, this patient is a hoarder at home to the point of personal safety issue and health hazard (fell and fractured left humerus). Daughter is requesting psychiatric care. Patient has long standing issue of medical noncompliance. Consulting social media community manager to help daughter formulate a plan. Thursday, she is much better. Consulting social media community manager for swing bed placement. From there, she can obtain counselling. Thursday, she continues to improve. Continuing PT/OT. Awaitng a bed in [facility]. Thursday, no change other than left arm improvement. Still waiting for a bed. , still waiting for a bed; she is doing better with improved glucose levels and blood pressure Thursday, continues to improve healing arm fracture; hypoglycemic, and will adjust meds. She was symptomatic earlier. Thursday, feeling better with diabetic meds adjusted. Thursday, continues to improve Exam (Progress Note) - Constitutional Vitals: Period Temp Pulse Resp BP Sys/East Pulse Ox Last 24 Hr 98.1 F-98.7 F 46-63 15-25 120-156/68-84 93-100 Exam: General appearance: no acute distress - Respiratory Respiratory exam: Present: clear to auscultation bilaterally - Cardiovascular Cardiovascular exam: Present: regular rate and rhythm - GI/Abdominal GI/Abdominal exam: Present: soft. Absent: tenderness - Extremities Exam Extremities exam: Absent: edema Vitals reviewed Results - Labs CBC & BMP: 01/04/17 06:22 01/04/17 06:22 Specialty Discharge - Follow Up or Referrals Follow up with: Bryce Jenkins Jr., MD [Physician] - 01/05/17 8:15 am
[2017-01-04] MEDS: CETIRIZINE 10 MG TABLET PO SCH (21:47)
[2017-01-04] MEDS: traZODone 50 MG TABLET PO SCH (21:47)
[2017-01-04] MEDS: CITALOPRAM 40 MG TABLET PO SCH (21:47)
[2017-01-05] MEDS: ALBUTEROL/IPRATROPIUM 3 ML NEB RESP TX SCH ×4 (01:46→19:28)
[2017-01-05] MEDS: LEVOTHYROXINE 50 MCG TABLET PO SCH (06:22)
[2017-01-05] MEDS: MAGNESIUM HYDROXIDE SUSP 30 ML UDCUP PO PRN ×2 (06:27→22:45)
[2017-01-05] MEDS: INSULIN REGULAR 100 UNIT/ML SUBCUT SCH ×4 (07:53→21:52)
--- NOTE | 2017-01-05 07:57 | Orthopedic Progress Note ---
Orthopedics - Subjective Interval history: Wound looks good we'll remove rickie today and Steri-Strip also will increase her PT/OT to include pendulum and gentle passive exercises riling her to advance as her comfort will allow. Follow-up with me 2-1/2-3 weeks Exam - Constitutional Vitals: Period Temp Pulse Resp BP Sys/East Pulse Ox Last 24 Hr 97.6 F-98.5 F 48-58 16-20 120-182/68-85 93-99 Results - Labs CBC & BMP: 01/04/17 06:22 01/04/17 06:22 Specialty Discharge - Follow Up or Referrals Follow up with: Bryce Jenkins Jr., MD [Physician] - 01/05/17 8:15 am
[2017-01-05] MEDS: OXYBUTYNIN 5 MG TABLET PO SCH ×2 (09:41→21:53)
[2017-01-05] MEDS: CARBIDOPA/LEVODOPA 25-100 MG TABLET PO SCH ×3 (09:41→21:52)
[2017-01-05] MEDS: VALSARTAN 80 MG TABLET PO SCH (09:41)
[2017-01-05] MEDS: cloNIDine 0.1 MG TABLET PO SCH ×3 (09:41→21:53)
[2017-01-05] MEDS: ASPIRIN CHEW 81 MG TABLET PO SCH (09:41)
[2017-01-05] MEDS: INSULIN GLARGINE 100 UNIT/ML SUBCUT SCH (09:42)
[2017-01-05] MEDS: GLIMEPIRIDE 2 MG TABLET PO SCH (09:42)
[2017-01-05] MEDS: sitaGLIPtin 25 MG TABLET PO SCH ×2 (09:42→21:52)
--- NOTE | 2017-01-05 17:52 | Internal Med Progress Note ---
Assessment and Plan (1) Comminuted left humeral fracture Status: Acute Current Visit: Yes (2) Hypertension Status: Chronic Current Visit: Yes Qualifiers: Hypertension type: essential hypertension Qualified Code(s): I10 - Essential (primary) hypertension (3) Diabetes Status: Chronic Current Visit: Yes Qualifiers: Diabetes mellitus type: type 2 Diabetes mellitus complication status: with hyperglycemia Diabetes mellitus [facility] insulin use: without [facility] use Qualified Code(s): E11.65 - Type 2 diabetes mellitus with hyperglycemia Internal Medicine - PN: Subj Interval history: Ms. 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 She is scheduled for a surgical repair in the morning per Dr. Chavez. She is uncertain how she fell and denies loss of consciousness. Today, , she is feeling better post surgical repair. Thursday, she reports left arm post surgical pain. Also, discussed case with daughter who is here from [place]. As it turns out, this patient is a hoarder at home to the point of personal safety issue and health hazard (fell and fractured left humerus). Daughter is requesting psychiatric care. Patient has long standing issue of medical noncompliance. Consulting perinatal social worker to help daughter formulate a plan. Thursday, she is much better. Consulting perinatal social worker for swing bed placement. From there, she can obtain counselling. Thursday, she continues to improve. Continuing PT/OT. Awaitng a bed in [facility]. Thursday, no change other than left arm improvement. Still waiting for a bed. , still waiting for a bed; she is doing better with improved glucose levels and blood pressure Thursday, continues to improve healing arm fracture; hypoglycemic, and will adjust meds. She was symptomatic earlier. Thursday, feeling better with diabetic meds adjusted. Thursday, continues to improve Thursday, still waiting for a bed in [facility] Exam (Progress Note) - Constitutional Vitals: Period Temp Pulse Resp BP Sys/East Pulse Ox Last 24 Hr 97.6 F-98.8 F 48-80 14-20 123-155/49-77 92-99 Exam: General appearance: no acute distress - Respiratory Respiratory exam: Present: clear to auscultation bilaterally - Cardiovascular Cardiovascular exam: Present: regular rate and rhythm - GI/Abdominal GI/Abdominal exam: Present: soft. Absent: tenderness - Extremities Exam Extremities exam: Absent: edema Vitals reviewed Results - Labs CBC & BMP: 01/04/17 06:22 01/04/17 06:22 Specialty Discharge - Follow Up or Referrals Follow up with: Bryce Jenkins Jr., MD [Physician] - 01/27/17 12:30 pm
[2017-01-05] MEDS: traZODone 50 MG TABLET PO SCH (21:51)
[2017-01-05] MEDS: CITALOPRAM 40 MG TABLET PO SCH (21:52)
[2017-01-05] MEDS: CETIRIZINE 10 MG TABLET PO SCH (21:53)
[2017-01-05] MEDS: POLYETHYLENE GLYCOL POWDER 17 GM PACK PO PRN (22:45)
[2017-01-06] MEDS: ALBUTEROL/IPRATROPIUM 3 ML NEB RESP TX SCH ×4 (00:37→19:30)
[2017-01-06] MEDS: LEVOTHYROXINE 50 MCG TABLET PO SCH (06:20)
[2017-01-06] MEDS: INSULIN REGULAR 100 UNIT/ML SUBCUT SCH ×4 (10:04→20:59)
[2017-01-06] MEDS: INSULIN GLARGINE 100 UNIT/ML SUBCUT SCH (10:59)
[2017-01-06] MEDS: GLIMEPIRIDE 2 MG TABLET PO SCH (11:07)
[2017-01-06] MEDS: sitaGLIPtin 25 MG TABLET PO SCH ×2 (11:07→20:59)
[2017-01-06] MEDS: cloNIDine 0.1 MG TABLET PO SCH ×3 (11:09→20:59)
[2017-01-06] MEDS: ASPIRIN CHEW 81 MG TABLET PO SCH (11:09)
[2017-01-06] MEDS: VALSARTAN 80 MG TABLET PO SCH (11:09)
[2017-01-06] MEDS: OXYBUTYNIN 5 MG TABLET PO SCH ×2 (11:10→20:59)
[2017-01-06] MEDS: CARBIDOPA/LEVODOPA 25-100 MG TABLET PO SCH ×3 (11:10→20:59)
[2017-01-06] MEDS: MAGNESIUM HYDROXIDE SUSP 30 ML UDCUP PO PRN ×3 (11:18→21:15)
[2017-01-06] MEDS ORDERED: LACTULOSE 20 GM/30 ML UDCUP PO PRN (18:12)
--- NOTE | 2017-01-06 18:28 | Internal Med Progress Note ---
Assessment and Plan (1) Comminuted left humeral fracture Status: Acute Current Visit: Yes (2) Hypertension Status: Chronic Current Visit: Yes Qualifiers: Hypertension type: essential hypertension Qualified Code(s): I10 - Essential (primary) hypertension (3) Diabetes Status: Chronic Current Visit: Yes Qualifiers: Diabetes mellitus type: type 2 Diabetes mellitus complication status: with hyperglycemia Diabetes mellitus intermediate insulin use: without intermediate use Qualified Code(s): E11.65 - Type 2 diabetes mellitus with hyperglycemia Internal Medicine - PN: Subj Interval history: Ms. 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 She is scheduled for a surgical repair in the morning per Dr. Chavez. She is uncertain how she fell and denies loss of consciousness. Today, , she is feeling better post surgical repair. Thursday, she reports left arm post surgical pain. Also, discussed case with daughter who is here from [place]. As it turns out, this patient is a hoarder at home to the point of personal safety issue and health hazard (fell and fractured left humerus). Daughter is requesting psychiatric care. Patient has long standing issue of medical noncompliance. Consulting director of social work to help daughter formulate a plan. Thursday, she is much better. Consulting director of social work for swing bed placement. From there, she can obtain counselling. Thursday, she continues to improve. Continuing PT/OT. Awaitng a bed in [facility]. Thursday, no change other than left arm improvement. Still waiting for a bed. , still waiting for a bed; she is doing better with improved glucose levels and blood pressure Thursday, continues to improve healing arm fracture; hypoglycemic, and will adjust meds. She was symptomatic earlier. Thursday, feeling better with diabetic meds adjusted. Thursday, continues to improve Thursday, still waiting for a bed in [facility] Thursday, spoke with [facility] who is working with [facility] for patient to be admitted to [facility] Exam (Progress Note) - Constitutional Vitals: Period Temp Pulse Resp BP Sys/East Pulse Ox Last 24 Hr 97.7 F-99.5 F 48-88 16-20 139-162/72-88 92-99 Exam: General appearance: no acute distress - Respiratory Respiratory exam: Present: clear to auscultation bilaterally - Cardiovascular Cardiovascular exam: Present: regular rate and rhythm - GI/Abdominal GI/Abdominal exam: Present: soft. Absent: tenderness - Extremities Exam Extremities exam: Absent: edema Vitals reviewed Results - Labs CBC & BMP: 01/04/17 06:22 01/04/17 06:22 Specialty Discharge - Follow Up or Referrals Follow up with: Bryce Jenkins Jr., MD [Physician] - 01/27/17 12:30 pm
[2017-01-06] MEDS: CITALOPRAM 40 MG TABLET PO SCH (20:58)
[2017-01-06] MEDS: traZODone 50 MG TABLET PO SCH (20:58)
[2017-01-06] MEDS: CETIRIZINE 10 MG TABLET PO SCH (20:59)
[2017-01-06] MEDS: POLYETHYLENE GLYCOL POWDER 17 GM PACK PO PRN (21:15)
[2017-01-07] MEDS: ALBUTEROL/IPRATROPIUM 3 ML NEB RESP TX SCH ×4 (00:44→20:04)
[2017-01-07 06:17] LABS: Basophils % 0.5 % (0.0-0.8); Eosinophils # 0.2 10*3/uL (0.0-0.87); Eosinophils % 2.1 % (0.00-10.9); Hematocrit 40.6 VOL% (35.7-47.0); Hemoglobin 13.2 GM/DL (12.0-16.0); Immature Granulocytes % 1.3 %; Lymphocytes # 2.4 10*3/uL (1.4-4.0); Mean Corpuscular HGB Conc 32.5 GM/DL (32-36); Mean Corpuscular Hemoglobin 29 PG (27-34); Mean Corpuscular Volume 90.2 FL (87-102); Mean Platelet Volume 11.6 FL (9.6-12.0); Monocytes # 0.5 10*3/uL (0.11-0.8); Monocytes % 6.5 % (1.7-12.7); Neutrophils # 4.3 10*3/uL (1.4-7.4); Neutrophils % 57.6 % (38.7-73.9); Platelet Count 179 T/CUMM (130-400); Red Cell Distribution Width 13.8 % (9.3-17.3); White Blood Count 7.5 T/CUMM (4-12)
[2017-01-07] MEDS: LEVOTHYROXINE 50 MCG TABLET PO SCH (06:29)
[2017-01-07 07:01] LABS: Albumin 3.4 G/DL (3.4-5.0); Bilirubin,Total 0.9 MG/DL (0.2-1.0); Calcium 8.8 MG/DL (8.5-10.1); Osmolality,Calculated 292.6 MOS/KG (273-304); Potassium 4.8 MMOL/L (3.5-5.1); Total Protein 6.3 G/DL (6.4-8.3)
[2017-01-07] MEDS: INSULIN REGULAR 100 UNIT/ML SUBCUT SCH ×4 (08:26→21:47)
[2017-01-07] MEDS: sitaGLIPtin 25 MG TABLET PO SCH ×2 (09:31→21:48)
[2017-01-07] MEDS: GLIMEPIRIDE 2 MG TABLET PO SCH (09:31)
[2017-01-07] MEDS: ASPIRIN CHEW 81 MG TABLET PO SCH (09:32)
[2017-01-07] MEDS: OXYBUTYNIN 5 MG TABLET PO SCH ×2 (09:32→21:48)
[2017-01-07] MEDS: INSULIN GLARGINE 100 UNIT/ML SUBCUT SCH (09:32)
[2017-01-07] MEDS: CARBIDOPA/LEVODOPA 25-100 MG TABLET PO SCH ×3 (09:32→21:48)
[2017-01-07] MEDS: VALSARTAN 80 MG TABLET PO SCH (09:32)
[2017-01-07] MEDS: cloNIDine 0.1 MG TABLET PO SCH ×3 (09:32→21:48)
--- NOTE | 2017-01-07 17:52 | Internal Med Progress Note ---
Assessment and Plan (1) Irreducible ventral incisional hernia Status: Resolved (2) Fracture of neck of left humerus Status: Inactive (3) Fall at home Status: Inactive Internal Medicine - PN: Subj Interval history: Ms. 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 She is scheduled for a surgical repair in the morning per Dr. Chavez. She is uncertain how she fell and denies loss of consciousness. Today, , she is feeling better post surgical repair. Thursday, she reports left arm post surgical pain. Also, discussed case with daughter who is here from [place]. As it turns out, this patient is a hoarder at home to the point of personal safety issue and health hazard (fell and fractured left humerus). Daughter is requesting psychiatric care. Patient has long standing issue of medical noncompliance. Consulting social insurance adviser to help daughter formulate a plan. Thursday, she is much better. Consulting social insurance adviser for swing bed placement. From there, she can obtain counselling. Thursday, she continues to improve. Continuing PT/OT. Awaitng a bed in [facility]. Thursday, no change other than left arm improvement. Still waiting for a bed. , still waiting for a bed; she is doing better with improved glucose levels and blood pressure Thursday, continues to improve healing arm fracture; hypoglycemic, and will adjust meds. She was symptomatic earlier. Thursday, feeling better with diabetic meds adjusted. Thursday, continues to improve Thursday, still waiting for a bed in [facility] Thursday, spoke with [facility] who is working with [facility] for patient to be admitted to [facility] Thursday, bed is now available, and she is ready for discharge in the morning Exam (Progress Note) - Constitutional Vitals: Period Temp Pulse Resp BP Sys/East Pulse Ox Last 24 Hr 97.6 F-98.7 F 50-62 12-22 136-158/68-77 91-99 Exam: General appearance: no acute distress - Respiratory Respiratory exam: Present: clear to auscultation bilaterally - Cardiovascular Cardiovascular exam: Present: regular rate and rhythm - GI/Abdominal GI/Abdominal exam: Present: soft. Absent: tenderness - Extremities Exam Extremities exam: Absent: edema Vitals reviewed Results - Labs CBC & BMP: 01/07/17 05:31 01/07/17 05:31 Specialty Discharge - Follow Up or Referrals Follow up with: Bryce Jenkins Jr., MD [Physician] - 01/27/17 12:30 pm Leticia Conklin DO [Primary Care Provider] - 02/18/17 12:00 pm
--- NOTE | 2017-01-07 17:52 | Discharge Summary ---
Hospital Course - Hospital Course Hospital Course: Ms. 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 She is scheduled for a surgical repair in the morning per Dr. Chavez. She is uncertain how she fell and denies loss of consciousness. She has been accepted into [facility] and will be discharged tomorrow for admission there to Dr. De La Vega. Her daughter has not wanted her to go home without psychiatric treatment. Her home environment is a safety issue, since the patient fell and fractured her arm. Diagnosis - Discharge Diagnosis (1) Comminuted left humeral fracture Status: Acute (2) Hypertension Status: Chronic (3) Diabetes Status: Chronic (4) Noncompliance Status: Chronic (5) JESSICA (obstructive sleep apnea) Status: Chronic (6) Psychiatric disorder Status: Chronic Specialty Discharge - Follow Up or Referrals Follow up with: Bryce Jenkins Jr., MD [Physician] - 01/27/17 12:30 pm Discharge Plan - Discharge Data Disposition: Disch/Xfer to Psych Hos Condition at Discharge: Stable Discharge Diet: diabetic diet, low fat, low cholesterol Activity: as per physical therapy, increase activity as tolerated - Discharge Medications New Glimepiride [Amaryl] 1 mg PO DAILY #30 tablet cloNIDine TAB [Catapres Tab] 0.1 mg PO TID #90 tablet Albuterol/Ipratropium Neb [Duoneb] 3 ml RESP TX RT Q6H #120 nebulization solution Insulin Glargine [Lantus] 25 unit SUBCUT DAILY #5 injection Magnesium Hydroxide Susp [Milk of Magnesia] 30 ml PO Q6H PRN #0 udcup PRN Reason: Constipation Polyethylene Glycol Powder [Miralax] 17 gm PO DAILY PRN #0 powder PRN Reason: Constipation Valsartan [Diovan] 160 mg PO DAILY #30 tablet Continue Cetirizine Tab [ZyrTEC Tab] 10 mg PO DAILY traZODone [Desyrel] 200 mg PO DAILY Citalopram [CeleXA] 40 mg PO DAILY Famotidine Tab [Pepcid Tab] 20 mg PO BID Levothyroxine Tab [Synthroid Tab] 50 mcg PO DAILY@0700 Sitagliptin Phosphate [Januvia] 50 mg PO BID Ergocalciferol (Vitamin D2) [Vitamin D2] 2,000 unit PO DAILY Oxybutynin [Ditropan] 5 mg PO BID Carbidopa/Levodopa 25-100 [Sinemet 25-100] 1 tablet PO TID Aspirin [Ecotrin] 81 mg PO DAILY Discontinued Valsartan [Diovan] 80 mg PO DAILY Glimepiride [Amaryl] 2 mg PO DAILY W/BREAKFAST - Follow Up or Referral Follow Up: Bryce Jeknins Jr., MD [Physician] - 01/27/17 12:30 pm Leticia Conklin DO [Primary Care Provider] - - Forms/Instructions Instructions: Open Reduction and Internal Fixation of an Arm Fracture (DC) Additional Discharge Instructions: Follow up with Dr. Jenkins per appointment set. Follow up with Dr. Frances Conklin in clinic within 6 weeks. Exam - Constitutional Vitals: Period Temp Pulse Resp BP Sys/East Pulse Ox Last 24 Hr 97.6 F-98.7 F 50-62 12-22 136-158/68-77 91-99 Exam: General appearance: no acute distress - Respiratory Respiratory exam: Present: clear to auscultation bilaterally - Cardiovascular Cardiovascular exam: Present: regular rate and rhythm - GI/Abdominal GI/Abdominal exam: Present: soft. Absent: tenderness - Extremities Exam Extremities exam: Absent: edema Vitals reviewed Discharge Results Labs on day of discharge: Labs from last 24 hours 01/07/17 01/07/17 01/07/17 16:03 11:09 06:56 WBC RBC Hgb Hct MCV MCH MCHC RDW Plt Count MPV Neut % (Auto) Lymph % (Auto) [place] % (Auto) Eos % (Auto) Baso % (Auto) Neut # (Auto) Lymph # (Auto) [place] # (Auto) Eos # (Auto) Baso # (Auto) Immature Gran % Nucleated RBC % Immature Gran # Nucleated RBCs # Sodium Potassium Chloride Carbon Dioxide Anion Gap BUN Creatinine GFR Calculation BUN/Creatinine Ratio Glucose POC Glucose 93 131 H 92 Calculated Osmolality Calcium Total Bilirubin AST ALT Alkaline Phosphatase Total Protein Albumin Globulin Albumin/Globulin Ratio 01/07/17 01/07/17 01/06/17 05:31 05:31 19:52 WBC 7.5 RBC 4.50 Hgb 13.2 Hct 40.6 MCV 90.2 MCH 29 MCHC 32.5 RDW 13.8 Plt Count 179 MPV 11.6 Neut % (Auto) 57.6 Lymph % (Auto) 32.0 [place] % (Auto) 6.5 Eos % (Auto) 2.1 Baso % (Auto) 0.5 Neut # (Auto) 4.3 Lymph # (Auto) 2.4 [place] # (Auto) 0.5 Eos # (Auto) 0.2 Baso # (Auto) 0.0 Immature Gran % 1.3 Nucleated RBC % 0.0 Immature Gran # 0.10 Nucleated RBCs # 0.00 Sodium 146 H Potassium 4.8 Chloride 109 H Carbon Dioxide 27 Anion Gap 14.8 BUN 24 H Creatinine 1.00 GFR Calculation 66 BUN/Creatinine Ratio 24.00 H Glucose 86 POC Glucose 140 H Calculated Osmolality 292.6 Calcium 8.8 Total Bilirubin 0.90 AST 33 ALT 35 Alkaline Phosphatase 95 Total Protein 6.3 L Albumin 3.4 Globulin 2.9 Albumin/Globulin Ratio 1.1 DS: Provider Date of admission: 12/24/16 15:42 Primary care physician: Leticia Conklin DO Attending physician on admission: Leticia Conklin DO Consults: 12/25/16 00:47 Consult to Dietitian [CONS] Routine Reason for Dietitian: Diet Recommendations Consult Comment: uncontrolled hyperglycemia 12/25/16 01:27 Consult to Physician [CONS] Routine Comment: Lft shoulder fx Consulting Provider: Bryce Jenkins Jr. When should Consulting Provider be notified: In am 12/25/16 13:39 Consult to Occupational Therapy [CONS] Routine Reason for Occupational Therapy: Evaluate and Treat Consult to Physical Therapy [CONS] Routine Reason for Physical Therapy: Evaluate and Treat 12/25/16 13:41 Consult to Case Mgmt/Social Srvs [CONS] Routine Reason for Case Mgmt/Social Srvs: Home Health Rehab Equipment 12/25/16 13:49 Consult to Pharmacy [CONS] Routine Reason for Pharmacy Consult: Adjust Meds Renal Funct 12/26/16 22:08 Consult to Dietitian [CONS] Routine Reason for Dietitian: Diet Recommendations Consult Comment: diabetic diet 12/27/16 09:41 Consult to Case Mgmt/Social Srvs [CONS] Routine Reason for Case Mgmt/Social Srvs: Discharge Planning Swingbed/SNF/Senior Living 01/05/17 07:58 Consult to Occupational Therapy [CONS] Routine Reason for Occupational Therapy: Evaluate and Treat Consult Comment: increase passive range of motion left shoulder, pendulum& elbow range of mo Discharging clinician: Leticia Conklin DO Expected date of discharge: 01/08/17
[2017-01-07] MEDS: CITALOPRAM 40 MG TABLET PO SCH (21:48)
[2017-01-07] MEDS: traZODone 50 MG TABLET PO SCH (21:48)
[2017-01-07] MEDS: CETIRIZINE 10 MG TABLET PO SCH (21:48)
[2017-01-08] MEDS: ALBUTEROL/IPRATROPIUM 3 ML NEB RESP TX SCH ×3 (00:53→13:07)
[2017-01-08] MEDS: LEVOTHYROXINE 50 MCG TABLET PO SCH (07:30)
[2017-01-08] MEDS: INSULIN REGULAR 100 UNIT/ML SUBCUT SCH ×2 (08:15→12:02)
[2017-01-08] MEDS: GLIMEPIRIDE 2 MG TABLET PO SCH (08:16)
[2017-01-08] MEDS: sitaGLIPtin 25 MG TABLET PO SCH (08:16)
[2017-01-08] MEDS: CARBIDOPA/LEVODOPA 25-100 MG TABLET PO SCH (09:45)
[2017-01-08] MEDS: cloNIDine 0.1 MG TABLET PO SCH (09:45)
[2017-01-08] MEDS: OXYBUTYNIN 5 MG TABLET PO SCH (09:45)
[2017-01-08] MEDS: ASPIRIN CHEW 81 MG TABLET PO SCH (09:45)
[2017-01-08] MEDS: VALSARTAN 80 MG TABLET PO SCH (09:45)
[2017-01-08] MEDS: INSULIN GLARGINE 100 UNIT/ML SUBCUT SCH (09:45)
[2017-01-08 16:19] VITALS: BP 136/62
== END 2017-01-08 15:57 | DRG 493 ==
LOC: N.2E 15:42 → N.3E 12-25 13:48
PROVIDERS: ADMIT Internal Medicine; ATTEND Internal Medicine

== ENCOUNTER 2018-08-20 07:47 | Inpatient (IN) ==
[2018-08-20] MEDS ORDERED: SODIUM CHLORIDE 0.9% 500 ML IV STA (09:25)
[2018-08-20] MEDS ORDERED: ceFAZolin 2,000 MG in PREMIX 1 EACH IV ONE (09:28)
[2018-08-20] MEDS ORDERED: HYDROmorphone 2 MG/1 ML VIAL IV PRN (09:28)
[2018-08-20] MEDS ORDERED: ONDANSETRON 4 MG/2 ML VIAL IV PRN ×2 (09:28→14:20)
[2018-08-20] MEDS ORDERED: DEXTROSE 50% 25 GM/50 ML VIAL IV PRN ×2 (09:41→19:17)
[2018-08-20] MEDS ORDERED: GLUCAGON 1 MG VIAL IM PRN ×2 (09:41→19:17)
[2018-08-20] MEDS ORDERED: POLYETHYLENE GLYCOL POWDER 17 GM PACK PO PRN (09:42)
[2018-08-20] MEDS ORDERED: CITALOPRAM 40 MG TABLET PO SCH (10:00)
[2018-08-20 10:28] LABS: Albumin 3.7 G/DL (3.4-5.0); Bilirubin,Total 0.8 MG/DL (0.2-1.0); Calcium 8.9 MG/DL (8.5-10.1); Osmolality,Calculated 285.4 MOS/KG (273-304); Potassium 4.7 MMOL/L (3.5-5.1); Total Protein 7.2 G/DL (6.4-8.3)
[2018-08-20 10:36] LABS: Apearance,Urine CLEAR (Clear); Bacteria,Urine Occasional /HPF (Few); Bilirubin,Urine Negative (Negative); Blood, Urine Negative (Negative); Glucose,Urine (UA) 150 mg/dL (Negative); Ketones,Urine 20 mg/dL (Negative); Mucus,Urine Occasional /LPF (Occasional); Nitrite,Urine Negative (Negative); Protein,Urine Negative; RBC,Urine <1 /HPF (0-4); Squamous Epithelial Cell,Urine Occasional /HPF (0-10); Urine Color Yellow (Yellow); Urine Specific Gravity 1.016 (1.001-1.035); Urine Urobilinogen < 2.0 EU/DL (0.2-1.0); WBC,Urine <1 /HPF (0-6)
[2018-08-20 10:53] LABS: Basophils % 0.3 % (0.0-0.8); Eosinophils # 0.1 10*3/uL (0.0-0.87); Eosinophils % 0.5 % (0.00-10.9); Hematocrit 40.1 VOL% (35.7-47.0); Hemoglobin 13.9 GM/DL (12.0-16.0); Immature Granulocytes % 0.5 %; Immature Granulocytes Absolute 0.05 #; Lymphocytes # 1.5 10*3/uL (1.4-4.0); Lymphocytes % 15.8 % (21.3-54.2); Mean Corpuscular HGB Conc 34.7 GM/DL (32-36); Mean Corpuscular Hemoglobin 30 PG (27-34); Mean Corpuscular Volume 86.1 FL (87-102); Mean Platelet Volume 12.5 FL (9.6-12.0); Monocytes # 0.7 10*3/uL (0.11-0.8); Neutrophils % 75.9 % (38.7-73.9); Platelet Count 92 T/CUMM (130-400); Red Blood Count 4.66 MC/CUMM (3.8-5.5); Red Cell Distribution Width 12.9 % (9.3-17.3); White Blood Count 9.3 T/CUMM (4-12)
[2018-08-20] MEDS: SUCRALFATE 1 GM TABLET PO SCH ×2 (11:30→17:26)
[2018-08-20 11:37] LABS: PT Patient Result 10.9 SECS; Partial Thromboplastin Time 21.6 SECS (0-40)
[2018-08-20] MEDS: INSULIN LISPRO 100 UNIT/ML SUBCUT SCH ×5 (12:00→20:48)
[2018-08-20] MEDS: SODIUM CHLORIDE 0.9% 1,000 ML IV SCH ×2 (12:30→20:00)
[2018-08-20] MEDS: ALBUTEROL/IPRATROPIUM 3 ML NEB RESP TX SCH ×2 (13:40→18:54)
[2018-08-20] MEDS ORDERED: PROMETHAZINE INJ 25 MG in SODIUM CHLORIDE 0.9% 50 ML IV PRN (14:20)
[2018-08-20] MEDS ORDERED: MORPHINE 10 MG/1 ML VIAL IV PRN (14:20)
[2018-08-20] MEDS ORDERED: diphenhydrAMINE 50 MG/1 ML VIAL IV PRN (14:20)
[2018-08-20] MEDS ORDERED: MEPERIDINE 25 MG/1 ML VIAL IV PRN (14:20)
[2018-08-20] MEDS ORDERED: ROPIVACAINE 0.5% 30 ML VIAL ONE (15:26)
[2018-08-20] MEDS ORDERED: LABETALOL 100 MG/20 ML VIAL IV ONE ×2 (15:31→15:35)
[2018-08-20] MEDS ORDERED: ONDANSETRON 4 MG/2 ML VIAL ONE ×2 (15:35→15:46)
[2018-08-20] MEDS ORDERED: MEPERIDINE 25 MG/1 ML VIAL ONE (15:35)
[2018-08-20] MEDS ORDERED: PROPOFOL 200 MG/20 ML VIAL IV ONE (15:45)
[2018-08-20] MEDS ORDERED: LIDOCAINE 1% 5 ML VIAL ONE (15:45)
[2018-08-20] MEDS ORDERED: SEVOFLURANE 1 UNIT/15 MINUTE INH ONE (15:45)
[2018-08-20] MEDS ORDERED: fentaNYL 100 MCG/2 ML VIAL ONE (15:46)
[2018-08-20] MEDS ORDERED: MIDAZOLAM 2 MG/2 ML VIAL ONE (15:46)
[2018-08-20] MEDS ORDERED: PHENYLEPHRINE 1 MG/10 ML SYRINGE IV ONE (15:46)
[2018-08-20] MEDS ORDERED: ALBUTEROL 2.5 MG/3 ML NEB RESP TX PRN (16:28)
[2018-08-20] MEDS: ENOXAPARIN 40 MG/0.4 ML SYRINGE SUBCUT SCH (17:26)
[2018-08-20] MEDS: CARBIDOPA/LEVODOPA 25-100 MG TABLET PO SCH ×2 (17:26→20:50)
[2018-08-20] MEDS: cloNIDine 0.1 MG TABLET PO SCH ×2 (17:26→20:49)
[2018-08-20] MEDS: buPROPion 100 MG TABLET PO SCH (20:49)
[2018-08-20] MEDS: traZODone 50 MG TABLET PO SCH (20:49)
[2018-08-20] MEDS: OXYBUTYNIN 5 MG TABLET PO SCH (20:49)
[2018-08-21] MEDS: ALBUTEROL/IPRATROPIUM 3 ML NEB RESP TX SCH ×4 (00:05→19:58)
[2018-08-21] MEDS: SODIUM CHLORIDE 0.9% 1,000 ML IV SCH ×2 (01:46→12:39)
[2018-08-21] MEDS: MORPHINE 4 MG/1 ML VIAL IM PRN ×3 (02:13→12:32)
[2018-08-21] MEDS: oxyCODONE/ACETAMINOPHEN 5-325 MG TABLET PO PRN ×3 (05:12→19:55)
[2018-08-21] MEDS: SUCRALFATE 1 GM TABLET PO SCH ×3 (08:55→16:48)
[2018-08-21] MEDS: INSULIN LISPRO 100 UNIT/ML SUBCUT SCH ×7 (08:56→21:01)
[2018-08-21] MEDS: MULTIVITAMIN (BEROCCA) TABLET PO SCH (08:58)
[2018-08-21] MEDS: MULTIVITAMIN (CENTRUM) TABLET PO SCH (08:58)
[2018-08-21] MEDS: cloNIDine 0.1 MG TABLET PO SCH ×3 (08:58→21:02)
[2018-08-21] MEDS: OXYBUTYNIN 5 MG TABLET PO SCH ×2 (08:58→21:02)
[2018-08-21] MEDS: CHOLECALCIFEROL 5,000 UNIT TABLET PO SCH (08:59)
[2018-08-21] MEDS: buPROPion 100 MG TABLET PO SCH ×2 (08:59→21:01)
[2018-08-21] MEDS: MAGNESIUM GLUCONATE 500 MG TABLET PO SCH (08:59)
[2018-08-21] MEDS: CARBIDOPA/LEVODOPA 25-100 MG TABLET PO SCH ×3 (08:59→21:02)
[2018-08-21] MEDS: BREXPIPRAZOLE 2 MG PO SCH (09:00)
[2018-08-21] MEDS: ENOXAPARIN 40 MG/0.4 ML SYRINGE SUBCUT SCH (16:26)
[2018-08-21] MEDS: traZODone 50 MG TABLET PO SCH (21:02)
[2018-08-22] MEDS: SODIUM CHLORIDE 0.9% 1,000 ML IV SCH ×4 (01:07→22:30)
[2018-08-22] MEDS: ALBUTEROL/IPRATROPIUM 3 ML NEB RESP TX SCH ×4 (01:08→19:17)
[2018-08-22] MEDS: oxyCODONE/ACETAMINOPHEN 5-325 MG TABLET PO PRN ×3 (03:52→19:00)
[2018-08-22] MEDS: SUCRALFATE 1 GM TABLET PO SCH ×3 (08:46→17:32)
[2018-08-22] MEDS: INSULIN LISPRO 100 UNIT/ML SUBCUT SCH ×7 (08:46→21:24)
[2018-08-22] MEDS: MULTIVITAMIN (BEROCCA) TABLET PO SCH (08:47)
[2018-08-22] MEDS: MAGNESIUM GLUCONATE 500 MG TABLET PO SCH (08:48)
[2018-08-22] MEDS: CHOLECALCIFEROL 5,000 UNIT TABLET PO SCH (08:48)
[2018-08-22] MEDS: CARBIDOPA/LEVODOPA 25-100 MG TABLET PO SCH ×3 (08:48→21:24)
[2018-08-22] MEDS: CITALOPRAM 40 MG TABLET PO SCH (08:48)
[2018-08-22] MEDS: OXYBUTYNIN 5 MG TABLET PO SCH ×2 (08:48→21:24)
[2018-08-22] MEDS: cloNIDine 0.1 MG TABLET PO SCH ×3 (08:48→21:24)
[2018-08-22] MEDS: MULTIVITAMIN (CENTRUM) TABLET PO SCH (08:48)
[2018-08-22] MEDS: buPROPion 100 MG TABLET PO SCH ×2 (08:49→21:24)
[2018-08-22] MEDS: MAGNESIUM HYDROXIDE SUSP 30 ML UDCUP PO PRN ×2 (08:55→19:01)
[2018-08-22] MEDS: BREXPIPRAZOLE 2 MG PO SCH (15:03)
[2018-08-22] MEDS: ENOXAPARIN 40 MG/0.4 ML SYRINGE SUBCUT SCH (17:31)
[2018-08-22] MEDS: traZODone 50 MG TABLET PO SCH ×2 (21:24→21:30)
[2018-08-23] MEDS: ALBUTEROL/IPRATROPIUM 3 ML NEB RESP TX SCH ×2 (00:12→06:58)
[2018-08-23] MEDS: CITALOPRAM 40 MG TABLET PO SCH (08:42)
[2018-08-23] MEDS: SODIUM CHLORIDE 0.9% 1,000 ML IV SCH (08:42)
[2018-08-23] MEDS: MAGNESIUM GLUCONATE 500 MG TABLET PO SCH (08:42)
[2018-08-23] MEDS: buPROPion 100 MG TABLET PO SCH (08:43)
[2018-08-23] MEDS: OXYBUTYNIN 5 MG TABLET PO SCH (08:43)
[2018-08-23] MEDS: CHOLECALCIFEROL 5,000 UNIT TABLET PO SCH (08:43)
[2018-08-23] MEDS: oxyCODONE/ACETAMINOPHEN 5-325 MG TABLET PO PRN (08:44)
[2018-08-23] MEDS: CARBIDOPA/LEVODOPA 25-100 MG TABLET PO SCH (08:44)
[2018-08-23] MEDS: MULTIVITAMIN (BEROCCA) TABLET PO SCH (08:44)
[2018-08-23] MEDS: SUCRALFATE 1 GM TABLET PO SCH ×2 (08:44→12:26)
[2018-08-23] MEDS: cloNIDine 0.1 MG TABLET PO SCH (08:44)
[2018-08-23] MEDS: MULTIVITAMIN (CENTRUM) TABLET PO SCH (08:45)
[2018-08-23] MEDS: BREXPIPRAZOLE 2 MG PO SCH (08:45)
[2018-08-23] MEDS: INSULIN LISPRO 100 UNIT/ML SUBCUT SCH ×4 (08:46→12:26)
[2018-08-23 11:15] VITALS: BP 165/77
== END 2018-08-23 13:10 | disposition swing bed (61) | DRG 502 ==
LOC: EDBD → EDUNIT# → N.EDINP 07:47 → N.ED 07:47 → N.3E 09:52
PROVIDERS: ADMIT Orthopaedic Surgery; ATTEND Orthopaedic Surgery

== ENCOUNTER 2022-02-24 06:02 | Inpatient (IN) ==
[2022-02-24] MEDS ORDERED: PHENYLEPHRINE DRIP 20 MG/250 ML PREMIX IV ONE (07:29)
[2022-02-24] MEDS ORDERED: HEPARIN/NACL 0.9% 2 UNITS/ML 1,000 UNIT/500 ML BAG IV ONE (07:29)
[2022-02-24] MEDS ORDERED: NITROGLYCERIN DRIP 50 MG/250 ML BOTTLE IV ONE (07:29)
[2022-02-24] MEDS ORDERED: FAMOTIDINE 20 MG TABLET PO ONE (08:01)
[2022-02-24] MEDS ORDERED: LACTATED RINGERS 1,000 ML IV SCH (08:30)
[2022-02-24] MEDS ORDERED: HEPARIN 5,000 UNIT/1 ML VIAL ONE (08:36)
[2022-02-24] MEDS ORDERED: TISSUE ADHESIVE 1 EACH APPLICATOR TOP ONE (08:36)
[2022-02-24] MEDS ORDERED: LIDOCAINE 1% 50 ML VIAL ONE (08:36)
[2022-02-24] MEDS ORDERED: ROCURONIUM 50 MG/5 ML VIAL IV ONE (08:41)
[2022-02-24] MEDS ORDERED: propofoL 200 MG/20 ML VIAL IV ONE (08:41)
[2022-02-24] MEDS ORDERED: ONDANSETRON 4 MG/2 ML VIAL ONE (08:41)
[2022-02-24] MEDS ORDERED: fentaNYL 100 MCG/2 ML VIAL ONE (08:41)
[2022-02-24] MEDS ORDERED: LIDOCAINE 2% 5 ML VIAL ONE (08:41)
[2022-02-24] MEDS ORDERED: SEVOFLURANE 1 UNIT/15 MINUTE INH ONE ×5 (08:41→12:01)
[2022-02-24] MEDS ORDERED: DEXAMETHASONE 4 MG/1 ML VIAL ONE (08:41)
[2022-02-24] MEDS ORDERED: MIDAZOLAM 2 MG/2 ML VIAL ONE (08:51)
[2022-02-24] MEDS ORDERED: ePHEDrine 50 MG/ML VIAL ONE (09:46)
[2022-02-24] MEDS ORDERED: SODIUM CHLORIDE 0.9% 1,000 ML IV ONE (09:50)
[2022-02-24] MEDS ORDERED: SODIUM CHLORIDE 0.9% 250 ML IV ONE (09:50)
[2022-02-24] MEDS ORDERED: LACTATED RINGERS 1,000 ML IV ONE (09:50)
[2022-02-24] MEDS ORDERED: PHENYLEPHRINE 1 MG/10 ML SYRINGE IV ONE (09:51)
[2022-02-24] MEDS ORDERED: HEPARIN 10,000 UNIT/10 ML VIAL ONE (10:55)
[2022-02-24] MEDS ORDERED: GLYCOPYRROLATE 0.4 MG/2 ML VIAL ONE (10:56)
[2022-02-24] MEDS ORDERED: ACETAMINOPHEN INJ 1,000 MG/100 ML VIAL IV ONE (10:57)
[2022-02-24] MEDS ORDERED: NEOSTIGMINE 10 MG/10 ML VIAL ONE (10:57)
[2022-02-24] MEDS ORDERED: KETOROLAC 30 MG/1 ML VIAL ONE (10:57)
[2022-02-24] MEDS ORDERED: NALOXONE 0.4 MG/ML VIAL IV PRN (11:28)
[2022-02-24] MEDS ORDERED: PROMETHAZINE 25 MG/1 ML VIAL IM PRN (11:28)
[2022-02-24] MEDS ORDERED: GLUCAGON 1 MG VIAL IM PRN (11:28)
[2022-02-24] MEDS ORDERED: oxyCODONE/ACETAMINOPHEN 5-325 MG TABLET PO PRN (11:28)
[2022-02-24] MEDS ORDERED: DEXTROSE 10% 250 ML BAG IV PRN (11:28)
[2022-02-24] MEDS ORDERED: HYDROmorphone 1 MG/1 ML SYRINGE IV PRN (11:28)
[2022-02-24] MEDS ORDERED: MELOXICAM 7.5 MG TABLET PO PRN (11:30)
[2022-02-24] MEDS ORDERED: MAGNESIUM HYDROXIDE SUSP 30 ML UDCUP PO PRN (11:30)
[2022-02-24] MEDS ORDERED: NITROPRUSSIDE 100 MG in DEXTROSE 5% 250 ML IV SCH (11:30)
[2022-02-24] MEDS ORDERED: ACETAMINOPHEN 325 MG TABLET PO PRN (11:30)
[2022-02-24] MEDS ORDERED: PHENYLEPHRINE DRIP 40 MG/250 ML PREMIX IV SCH (11:30)
[2022-02-24] MEDS ORDERED: ALBUTEROL 2.5 MG/3 ML NEB RESP TX PRN (11:30)
[2022-02-24] MEDS ORDERED: METHOCARBAMOL 750 MG TABLET PO PRN (11:30)
[2022-02-24] MEDS ORDERED: CYCLOSPORINE 0.05% BOTH EYES SCH (11:30)
[2022-02-24] MEDS: HYDROmorphone 1 MG/1 ML SYRINGE IV PRN ×3 (11:50→23:59)
[2022-02-24] MEDS ORDERED: ONDANSETRON 4 MG/2 ML VIAL IV PRN (11:54)
[2022-02-24] MEDS ORDERED: PROTAMINE SULFATE 50 MG/5 ML VIAL IV ONE (12:01)
[2022-02-24] MEDS ORDERED: MELATONIN 3 MG TABLET PO PRN (12:31)
[2022-02-24] MEDS ORDERED: PHENYLEPHRINE DRIP 40 MG/250 ML PREMIX IV PRN (12:36)
[2022-02-24 12:37] VITALS: BP 159/62
[2022-02-24] MEDS ORDERED: NITROPRUSSIDE 50 MG/2 ML VIAL ONE (12:49)
[2022-02-24] MEDS: NITROPRUSSIDE 100 MG in DEXTROSE 5% 250 ML IV SCH (12:59)
[2022-02-24] MEDS: LACTATED RINGERS 1,000 ML IV SCH ×2 (13:11→22:03)
[2022-02-24] MEDS: OXYBUTYNIN XL 5 MG TABLET PO SCH ×3 (13:14→20:48)
[2022-02-24] MEDS: oxyCODONE/ACETAMINOPHEN 5-325 MG TABLET PO PRN ×2 (13:14→20:49)
[2022-02-24] MEDS: INSULIN REGULAR 100 UNIT/ML SUBCUT SCH ×3 (13:24→20:51)
[2022-02-24] MEDS ORDERED: INFLUENZA VIRUS VACCINE 0.5 ML SYRINGE IM ONE (13:43)
[2022-02-24] MEDS: CARBIDOPA/LEVODOPA 25-100 MG TABLET PO SCH ×2 (14:23→20:49)
[2022-02-24] MEDS: ONDANSETRON 4 MG/2 ML VIAL IV PRN ×2 (14:23→23:59)
[2022-02-24] MEDS: ALBUTEROL/IPRATROPIUM 3 ML NEB RESP TX SCH ×2 (15:28→18:08)
[2022-02-24] MEDS: GLIMEPIRIDE 4 MG TABLET PO SCH (20:48)
[2022-02-24] MEDS ORDERED: NON-FORMULARY MEDICATION (Aspirin 81 mg Capsule) PO SCH (21:00)
[2022-02-24] MEDS ORDERED: OXYBUTYNIN XL 5 MG TABLET PO ONE (22:30)
[2022-02-24] MEDS ORDERED: OXYBUTYNIN XL 10 MG TABLET PO ONE (22:30)
[2022-02-25] MEDS: ALBUTEROL/IPRATROPIUM 3 ML NEB RESP TX SCH ×4 (01:38→11:55)
[2022-02-25 05:04] LABS: Basophils % 0.2 % (0.0-0.8); Eosinophils % 0.2 % (0.00-10.9); Hematocrit 35.6 VOL% (35.7-47.0); Hemoglobin 11.8 GM/DL (12.0-16.0); Immature Granulocytes % 0.3 %; Immature Granulocytes Absolute 0.03 #; Lymphocytes # 1.3 10*3/uL (1.4-4.0); Lymphocytes % 14.6 % (21.3-54.2); Mean Corpuscular HGB Conc 33.1 GM/DL (32-36); Mean Corpuscular Volume 89.7 FL (87-102); Mean Platelet Volume 11.8 FL (9.6-12.0); Monocytes % 7.8 % (1.7-12.7); Neutrophils % 76.9 % (38.7-73.9); Platelet Count 146 T/CUMM (130-400); Red Blood Count 3.97 MC/CUMM (3.8-5.5); Red Cell Distribution Width 12.5 % (9.3-17.3); White Blood Count 8.9 T/CUMM (4-12)
[2022-02-25 05:21] LABS: Albumin 2.9 G/DL (3.4-5.0); Bilirubin,Total 0.4 MG/DL (0.20-1.00); Calcium 8.8 MG/DL (8.5-10.1); Osmolality,Calculated 282.4 MOS/KG (273-304); Potassium 3.8 MMOL/L (3.5-5.1); Total Protein 5.8 G/DL (6.4-8.2)
[2022-02-25] MEDS: HYDROmorphone 1 MG/1 ML SYRINGE IV PRN (06:01)
[2022-02-25] MEDS: INSULIN REGULAR 100 UNIT/ML SUBCUT SCH ×3 (08:08→17:21)
[2022-02-25] MEDS: LACTATED RINGERS 1,000 ML IV SCH (08:09)
[2022-02-25] MEDS ORDERED: FENOFIBRATE 160 MG TABLET PO SCH (09:00)
[2022-02-25] MEDS ORDERED: ASPIRIN EC 81 MG TABLET PO SCH (09:00)
[2022-02-25] MEDS ORDERED: LOSARTAN 50 MG TABLET PO SCH (09:00)
[2022-02-25] MEDS ORDERED: POLYETHYLENE GLYCOL POWDER 17 GM PACK PO SCH (09:00)
[2022-02-25] MEDS ORDERED: OXYBUTYNIN XL 5 MG TABLET PO SCH ×2 (09:00→21:00)
[2022-02-25] MEDS ORDERED: LEVOTHYROXINE 75 MCG TABLET PO SCH (09:00)
[2022-02-25] MEDS ORDERED: CLOPIDOGREL 75 MG TABLET PO SCH ×2 (09:00)
[2022-02-25] MEDS ORDERED: FAMOTIDINE 20 MG TABLET PO SCH (09:00)
[2022-02-25] MEDS: CARBIDOPA/LEVODOPA 25-100 MG TABLET PO SCH ×2 (09:55→15:35)
[2022-02-25] MEDS: GLIMEPIRIDE 4 MG TABLET PO SCH (09:56)
[2022-02-25] MEDS: NITROPRUSSIDE 100 MG in DEXTROSE 5% 250 ML IV SCH (13:29)
[2022-02-25] MEDS ORDERED: CYCLOSPORINE 0.05% BOTH EYES SCH (16:00)
== END 2022-02-25 17:30 | disposition home or self-care (01) | DRG 38 ==
LOC: N.ICU 06:02
PROVIDERS: ADMIT Surgery; ATTEND Surgery